=== PATIENT | female | born 1960 | race Caucasian/White ===

== ENCOUNTER → 2016-10-11 | Outpatient (CLI) | payer OTHER ==
[~2016-10-11] MED LIST: ARIP2TAB3 PO; ASCO10003 PO; ASPI81TA28 PO; ATV/1 PO; DULO60CA44 PO; ESZO1TAB16 PO; IRON PO; LRS20 PO; MULTTAB PO; NEXIUM PO; OXYC20TA32 PO; PREG100C PO; SUMA100T16 PO
== END | disposition home or self-care (01) ==
LOC: C.LABSPEC 12:01
PROVIDERS: ATTEND Obstetrics & Gynecology
DX: R10.2 Pelvic and perineal pain (principal)

== ENCOUNTER → 2017-04-16 | Outpatient (CLI) | payer OTHER ==
[2017-04-16 16:23] LABS: MANUAL MICROSCOPIC REQUIRED? YES; REVIEW REQ? NO; URINE APPEARANCE SLIGHTLY CLOUDY (CLEAR); URINE COLOR ORANGE
[2017-04-16 16:28] LABS: URINE SPECIFIC GRAVITY 1.007 (1.000-1.030)
[2017-04-16 16:35] LABS: SULFASALICYLIC ACID NEG (NEG)
[2017-04-16 16:36] LABS: URINE BACTERIA NEG (NEG); URINE RBC >30 /hpf (0-4); URINE WBC >30 /hpf (0-5)
== END | disposition home or self-care (01) ==
LOC: C.LABSPEC 15:53
PROVIDERS: ATTEND Physician Assistant
DX: R30.9 Painful micturition, unspecified (principal)

== ENCOUNTER → 2017-04-24 | Outpatient (CLI) | payer OTHER | END | disposition home or self-care (01) | LOC: C.LABSPEC 17:12 | PROVIDERS: ATTEND Podiatrist Foot & Ankle Surgery | DX: B35.1 Tinea unguium (principal) ==

== ENCOUNTER → 2017-05-27 | Outpatient (CLI) | payer OTHER ==
[2017-05-27 19:54] LABS: ALKALINE PHOSPHATASE 97 U/L (45-117); ALT/SGPT 23 U/L (12-78); AST/SGOT 23 U/L (15-37)
--- NOTE | 2017-06-03 15:42 | CODING QUERY NO DIAGNOSIS ---
TREATMENT RENDERED WITHOUT A DIAGNOSIS To promote full compliance with coding requirements relating to patient care, physician participation is requested in all cases of operating room nurse uncertainty. Please assist us with providing a diagnosis/symptom for the test(s) below: A diagnosis/symptom was not documented on your Order. A valid diagnosis/symptom is required to bill all insurances. Please remember that we are unable to code a diagnosis of rule out, probable, possible, questionable, or suspected. Tests that require a diagnosis: DOS: 05/27/17 * BILIRUBIN, TOTAL & DIRECT DIAGNOSIS: * LIVER PROFILE DIAGNOSIS: Provider Signature: Date: Thank you Aysha Kent [facility] Information Management Once completed, please kindly fax back to [phone] For questions please call [phone]
== END | disposition home or self-care (01) ==
LOC: C.LAB 18:46
PROVIDERS: ATTEND Podiatrist Foot & Ankle Surgery
DX: L60.0 Ingrowing nail (principal); B35.1 Tinea unguium; M79.675 Pain in left toe(s); M79.674 Pain in right toe(s); M79.672 Pain in left foot; M79.671 Pain in right foot

== ENCOUNTER 2019-07-18 15:07 | Inpatient (IN) ==
[2019-07-18] MEDS ORDERED: ALBUT/IPRATROP 3MG/0.5MG NEB 3 ML VIAL NEB STA (15:36)
[2019-07-18] MEDS ORDERED: SODIUM CHLORIDE 0.9% 1000ML 1,000 ML IV ONE (15:36)
--- NOTE | 2019-07-18 16:08 | Emergency Department Note ---
History of Present Illness General Chief Complaint: Shortness of Breath/Dyspnea Stated Complaint: HARD TO BREATH Source: patient Mode of arrival: ambulatory Limitations: no limitations History of Present Illness Provider Complaint: shortness of breath, cough and pain with inspiration Onset (ago): hour(s) (12) Severity: moderate Consistency/Duration: + intermittent and + progressively worsening Maximum Pain Intensity: 8 Current Pain Intensity: 8 Relieved By: + rest and + upright position Exacerbated By: + lying flat, + exertion, + coughing and + inspiration Context: + recent illness (pneumonia since May 2019); no recent travel Known history of: recurrent pneumonia Associated symptoms: + pain with inspiration, + cough, + orthopnea and + other (chills) Treatment prior to arrival: none This 59-year-old female patient presents emergency department today, ambulatory, accompanied by her . The patient reports that significant past medical history of pneumonia in 2013. Upon review of the patient's medical records, it appears that she became septic and had a lung abscess at this time. She was admitted for 12 days. The patient states since that time, her right lung has not been "normal", but she has not had any specific problems. She states on May 30, she was seen at [facility] in [place] and diagnosed with pneumonia. She states she has not followed up with her PCP, but has been back to the hospital multiple times for pneumonia since this time. She states she was on 3 antibiotics, prednisone, and inhaler. She states occasionally, she gets better and feels well, but a few weeks later she develops chills, cough, and dyspnea. The patient states the symptoms most recently began at 2 AM this morning. She states she is having pain with inspiration, followed by coughing. She denies any productive cough or hemoptysis. She denies any fever. She denies any leg swelling or recent travel. She denies a history of clots. She has taken no medications for her symptoms. She has not followed up with her PCP for a negative chest x-ray, but states the chest x-rays which have been performed in [place] have showed pneumonia in her right lung. Patient denies any abdominal pain, nausea, vomiting, numbness, tingling, headache, dizziness, chest pain, diarrhea, constipation, or other concerning symptoms. Related Data Home oxygen amount: none Home Medications Home Medications Medication Instructions Recorded Confirmed Type amitriptyline 150 mg PO HS 08/27/18 07/18/19 History aripiprazole [Abilify] 15 mg PO QAM 08/27/18 07/18/19 History aspirin [Aspir-81] 81 mg PO QAM 08/27/18 07/18/19 History baclofen 20 mg PO TID 08/27/18 07/18/19 History esomeprazole magnesium [Nexium 20 mg PO QAM 08/27/18 07/18/19 History Packet] multivitamin [Multiple Vitamins] 1 tab PO QAM 08/27/18 07/18/19 History oxycodone 10 mg PO QID PRN 08/27/18 07/18/19 History pregabalin [Lyrica] 200 mg PO AMPM 08/27/18 07/18/19 History vitamin B complex 1 tab PO QAM 08/27/18 07/18/19 History hydroxyzine pamoate [Vistaril] 100 mg PO HS 07/18/19 07/18/19 History naloxegol [Movantik] 25 mg PO QAM 07/18/19 07/18/19 History vortioxetine [Trintellix] 10 mg PO QAM 07/18/19 07/18/19 History Allergies Allergy/AdvReac Type Severity Reaction Status Date / Time cephalexin Allergy Severe NEURO Verified 07/18/19 18:46 CHANGES orange Allergy Unknown Swelling Verified 07/18/19 18:46 of the Eye Sulfa (Sulfonamide Allergy Unknown Swelling Verified 07/18/19 18:46 Antibiotics) of Lip/Tongue/Throat Past Med/Surg History Medical History Elevated white blood cell count (Acute) Hypokalemia (Acute) UTI (lower urinary tract infection) (Acute) Sepsis (Acute 09/10/14) Lung abscess (Acute 09/10/14) Fibromyalgia (Chronic) Appendicitis Sinusitis (Acute) Social History Preferred Language: Danish Communication Ability: Effective Labor Delivery Specialist Required: No Beliefs That Will Affect Care: None Current Living Situation: Spouse current occupational status: unemployed and disabled Other Information That Helps Us Care for You: No Feels Safe at Home: Yes Safety Concerns: Feels Safe At This Time Smoking Status: Former smoker Age Started Using Tobacco: 17 ; Age Quit Using Tobacco: 29 ; packs per day: 1 ; Do You Dip or Chew Tobacco: No ; Number of Years Since Quit: 25 ; Hx Alcohol Use: No Hx Substance Use: No Review of Systems A total of 10 systems reviewed and were otherwise negative Physical Exam Vital Signs: Vital Signs - 24 hr 07/18/19 15:08 07/18/19 15:30 07/18/19 15:33 Temperature 36.7 C Temperature Source Oral Sepsis Recent Feve r Within 48 Hours No Sepsis New/Unexpla ined Change in Men beata Status No Sepsis Action Take n by Nursing No Action Required Pulse Rate 100 H Pulse Rate [Right Finger] Pulse Rate from Sp O2 Sensor Pulse Rhythm [Righ t Finger] Pulse Strength [Ri ght Finger] Respiratory Rate 18 Respiratory Effort / Characteristics Non-Labored Non-Labored Respiratory Depth Normal Blood Pressure 115/76 Blood Pressure [Ri ght Arm] Blood Pressure Eryn n 89 Blood Pressure Eryn n [Right Arm] Blood Pressure Pos ition [Right Arm] Pulse Oximetry 95 92 Oxygen Delivery Me thod Room Air Room Air Room Air 07/18/19 15:36 07/18/19 16:00 07/18/19 16:02 Temperature Temperature Source Sepsis Recent Feve r Within 48 Hours Sepsis New/Unexpla ined Change in Men beata Status Sepsis Action Take n by Nursing Pulse Rate 89 85 Pulse Rate [Right Finger] 85 Pulse Rate from Sp O2 Sensor 88 85 Pulse Rhythm [Righ t Finger] Pulse Strength [Ri ght Finger] Respiratory Rate 18 23 16 Respiratory Effort / Characteristics Non-Labored Sponta neous Respiratory Depth Blood Pressure Blood Pressure [Ri ght Arm] Blood Pressure Eryn n Blood Pressure Eryn n [Right Arm] Blood Pressure Pos ition [Right Arm] Pulse Oximetry 93 92 92 Oxygen Delivery Me thod 07/18/19 16:30 07/18/19 16:32 07/18/19 16:36 Temperature Temperature Source Sepsis Recent Feve r Within 48 Hours Sepsis New/Unexpla ined Change in Men beata Status Sepsis Action Take n by Nursing Pulse Rate 89 Pulse Rate [Right Finger] Pulse Rate from Sp O2 Sensor 89 Pulse Rhythm [Righ t Finger] Pulse Strength [Ri ght Finger] Respiratory Rate 17 Respiratory Effort / Characteristics Respiratory Depth Blood Pressure Blood Pressure [Ri ght Arm] Blood Pressure Eryn n Blood Pressure Eryn n [Right Arm] Blood Pressure Pos ition [Right Arm] Pulse Oximetry 92 91 91 Oxygen Delivery Me thod Room Air Room Air 07/18/19 16:46 07/18/19 17:08 07/18/19 18:37 Temperature Temperature Source Sepsis Recent Feve r Within 48 Hours Sepsis New/Unexpla ined Change in Men beata Status Sepsis Action Take n by Nursing Pulse Rate 89 90 Pulse Rate [Right Finger] 90 87 Pulse Rate from Sp O2 Sensor 89 90 Pulse Rhythm [Righ t Finger] Regular Regular Pulse Strength [Ri ght Finger] Normal Respiratory Rate 18 14 Respiratory Effort / Characteristics Respiratory Depth Blood Pressure 101/62 Blood Pressure [Ri ght Arm] 101/62 105/75 Blood Pressure Eryn n 75 Blood Pressure Eryn n [Right Arm] 75 85 Blood Pressure Pos ition [Right Arm] Lying Lying Pulse Oximetry 92 96 93 Oxygen Delivery Me thod Room Air Room Air Physical Exam: VITALS: Vitals are noted on the nurse's note and reviewed by myself. Patient is afebrile, but heart rate is in the high 90s on examination. O2 saturation is 92%. Normotensive. GENERAL: This is a 59-year-old white female, in no acute distress, no ndiaphoretic, well-developed well-nourished. SKIN: The skin was without rashes, erythema, edema, or bruising. There is no tenting of the skin. Capillary refill less than 2 seconds. HEAD: Normocephalic atraumatic. EARS: External auditory canals clear, tympanic membranes pearly mejia without erythema or effusion bilaterally. EYES: Pupils equal round and reactive to light and accommodation. Conjunctivae without injection, sclerae without icterus. Extraocular movements intact. NOSE: Patent, turbinates without inflammation or discharge. No sinus tenderness. MOUTH: Mucous membranes moist. Tonsils are not enlarged. Pharynx without erythema or exudate. Uvula midline. Airway patent. Tongue does not deviate. NECK: Supple without nuchal rigidity. No lymphadenopathy. Cervical spine is nontender. HEART: Regular rate and rhythm without murmurs gallops or rubs. LUNGS: Clear to auscultation bilaterally without wheezes, rales or rhonchi. Deep breathing does cause cough. No dullness to percussion. No retractions or accessory muscle use. ABDOMEN: Positive bowel sounds x 4. Normal tympanic percussion. Soft, nontender, without masses or organomegaly. Benavidez sign negative. No guarding or rebound tenderness. MUSCULOSKELETAL: No muscle atrophy, erythema, or edema noted. Full range of motion without joint tenderness in all extremities. No tenderness to palpation. Normal gait. Strength 5/5 throughout. Negative Homans sign bilaterally. NEURO: Patient was alert and oriented to person place and time. Normal sensation to light and sharp touch. No focal neurological deficits. Course The patient was seen and evaluated as above. IV access obtained, labs drawn. Patient was medicated with IV fluids and a DuoNeb treatment. Imaging performed and reviewed by myself and radiologist as above. Labs reviewed by myself. Received a phone call from the RN that the patient is complaining of a migraine. The patient was given 6 mg subcutaneous Imitrex. I discussed the findings with the patient at bedside. I did recommend admission . The patient was agreeable. I discussed the case with my attending. I discussed the case with wrapper caser. I contacted the hospitalist for [facility], Dr. Murry. Advised her of the patient's history and current condition and suggested admission. She was agreeable. She did request vancomycin and Zosyn for the pneumonia. Patient was medicated with IV vancomycin and Zosyn. Please see hospitalist dictation regarding ongoing management care of this patient. Administered Medications Discontinued Medications Albuterol (Duoneb) 3 ml NEB NOW STA Stop: 07/18/19 15:37 Last Admin: 07/18/19 16:01 Dose: 3 ml Documented by: [id number] Sodium Chloride (Nss 1000ml) 1,000 mls @ 999 mls/hr IV .Q1H1M ONE Stop: 07/18/19 16:36 Last Infusion: 07/18/19 18:30 Dose: 0 mls/hr Documented by: [id number] Admin: 07/18/19 17:07 Dose: 999 mls/hr Documented by: [id number] Vancomycin HCl 2,000 mg/ (Sodium Chloride) 540 mls @ 200 mls/hr IV NOW ONE Stop: 07/18/19 21:18 Last Infusion: 07/18/19 23:21 Dose: 0 mls/hr Documented by: [id number] Infusion: 07/18/19 19:50 Dose: 200 mls/hr Documented by: [id number] Infusion: 07/18/19 19:18 Dose: 0 mls/hr Documented by: [id number] Admin: 07/18/19 18:58 Dose: 200 mls/hr Documented by: [id number] Piperacillin Sod/Tazobactam Sod (Zosyn) 4.5 gm in 120 mls @ 240 mls/hr IV NOW ONE Stop: 07/18/19 19:09 Last Infusion: 07/18/19 19:50 Dose: 0 mls/hr Documented by: [id number] Admin: 07/18/19 19:19 Dose: 240 mls/hr Documented by: [id number] Ioversol (Optiray 320 125ml) 72 ml IV ONCE PRN PRN Reason: Interaction Checking Stop: 07/22/19 17:01 Last Admin: 07/18/19 17:03 Dose: 72 ml Documented by: [id number] Sumatriptan Succinate (Imitrex) 6 mg SQ NOW STA Stop: 07/18/19 17:35 Last Admin: 07/18/19 17:45 Dose: 6 mg Documented by: [id number] Medical Decision Making Differential Diagnosis + acute exacerbation of chronic obstructive airways disease, + congestive heart failure, + community acquired pneumonia, + asthma with exacerbation, + pulmonary embolism, + COPD, + bronchitis, + pneumothorax, + pneumonia, + pleural effusion, + CHF, + ACS and + aspiration Home Medications Current Medication List: was personally reviewed by me Laboratory Data Attestation: I reviewed the patient's lab results. Leukocytosis of 15,000. Neutrophil elevation at 12,000. No anemia noted. Renal, hepatic function and electrolytes without significant abnormality. Troponin negative. Lactic acid 1.5. Evangeline screen negative. Influenza testing negative. Coags without abnormality. Urinalysis without evidence of blood or infection. Result diagrams: 07/18/19 16:20 07/18/19 16:20 Lab Results 07/18/19 07/18/19 07/18/19 Range/Units 16:20 16:20 16:20 WBC 15.40 H (4.8-10.8) K/uL RBC 4.44 (4.2-5.4) M/uL Hgb 13.5 (12.0-16.0) g/dL Hct 39.6 (37-47) % MCV 89.2 (80-100) fL MCH 30.4 (25-34) pg MCHC 34.1 (32-36) g/dL RDW Std Deviation 51.6 H (36.4-46.3) fL RDW Coeff of Abida 15.8 H (11.5-14.5) % Plt Count 248 (130-400) K/uL MPV 10.6 H (7.4-10.4) fL Immature Gran % (Auto) 0.4 % Neut % (Auto) 81.7 % Lymph % (Auto) 12.1 % Evangeline % (Auto) 5.3 % Eos % (Auto) 0.3 % Baso % (Auto) 0.2 % Immature Gran # (Auto) 0.06 H (0.00-0.02) K/uL Neut # (Auto) 12.59 H (1.4-6.5) K/uL Lymph # (Auto) 1.86 (1.2-3.4) K/uL Evangeline # (Auto) 0.82 H (0.11-0.59) K/uL Eos # (Auto) 0.04 (0-0.5) K/uL Baso # (Auto) 0.03 (0-0.2) K/uL PT Cancelled INR Cancelled APTT Cancelled PTT Ratio Cancelled Sodium 139 (136-145) mmol/L Potassium 3.9 (3.5-5.1) mmol/L Chloride 106 (98-107) mmol/L Carbon Dioxide 25 (21-32) mmol/L Anion Gap 8.0 (3-11) BUN 13 (7-18) mg/dl Creatinine 0.73 (0.6-1.2) mg/dl Est Cr Clr Drug Dosing 91.2 ml/min Est GFR ( Amer) 103.8 Est GFR (Non-Af Amer) 89.5 BUN/Creatinine Ratio 18.1 (10-20) Glucose 90 (70-99) mg/dl Lactate (0.4-2.0) mmol/L Calcium 8.7 (8.5-10.1) mg/dl Total Bilirubin 0.7 (0.2-1) mg/dl AST 49 H (15-37) U/L ALT 46 (12-78) U/L Alkaline Phosphatase 100 (45-117) U/L Troponin I < 0.015 (0-0.045) ng/ml Total Protein 7.0 (6.4-8.2) gm/dl Albumin 3.4 (3.4-5.0) gm/dl Globulin 3.6 (2.5-4.0) gm/dl Albumin/Globulin Ratio 0.9 (0.9-2) Urine Color Urine Appearance (Clear) Urine pH (4.5-7.5) Ur Specific Ludlow (1.000-1.030) Urine Protein (Negative) Urine Glucose (UA) (Negative) Urine Ketones (Negative) Urine Blood (Negative) Urine Nitrite (Negative) Urine Bilirubin (Negative) Urine Urobilinogen (Negative) Ur Leukocyte Esterase (Negative) Urine WBC (Auto) (0-5) /hpf Urine RBC (Auto) (0-4) /hpf U Hyaline Cast (Auto) (0-5) /lpf U Epithel Cells (Auto) (0-5) /lpf Urine Bacteria (Auto) (Negative) Monoscreen (Negative) Influenza Type A Ag (Neg) Influenza Type B Ag (Neg) 07/18/19 07/18/19 07/18/19 Range/Units 16:43 16:43 16:45 WBC (4.8-10.8) K/uL RBC (4.2-5.4) M/uL Hgb (12.0-16.0) g/dL Hct (37-47) % MCV (80-100) fL MCH (25-34) pg MCHC (32-36) g/dL RDW Std Deviation (36.4-46.3) fL RDW Coeff of Abida (11.5-14.5) % Plt Count (130-400) K/uL MPV (7.4-10.4) fL Immature Gran % (Auto) % Neut % (Auto) % Lymph % (Auto) % Evangeline % (Auto) % Eos % (Auto) % Baso % (Auto) % Immature Gran # (Auto) (0.00-0.02) K/uL Neut # (Auto) (1.4-6.5) K/uL Lymph # (Auto) (1.2-3.4) K/uL Evangeline # (Auto) (0.11-0.59) K/uL Eos # (Auto) (0-0.5) K/uL Baso # (Auto) (0-0.2) K/uL PT INR APTT PTT Ratio Sodium (136-145) mmol/L Potassium (3.5-5.1) mmol/L Chloride (98-107) mmol/L Carbon Dioxide (21-32) mmol/L Anion Gap (3-11) BUN (7-18) mg/dl Creatinine (0.6-1.2) mg/dl Est Cr Clr Drug Dosing ml/min Est GFR ( Amer) Est GFR (Non-Af Amer) BUN/Creatinine Ratio (10-20) Glucose (70-99) mg/dl Lactate 1.5 (0.4-2.0) mmol/L Calcium (8.5-10.1) mg/dl Total Bilirubin (0.2-1) mg/dl AST (15-37) U/L ALT (12-78) U/L Alkaline Phosphatase (45-117) U/L Troponin I (0-0.045) ng/ml Total Protein (6.4-8.2) gm/dl Albumin (3.4-5.0) gm/dl Globulin (2.5-4.0) gm/dl Albumin/Globulin Ratio (0.9-2) Urine Color Urine Appearance (Clear) Urine pH (4.5-7.5) Ur Specific Ludlow (1.000-1.030) Urine Protein (Negative) Urine Glucose (UA) (Negative) Urine Ketones (Negative) Urine Blood (Negative) Urine Nitrite (Negative) Urine Bilirubin (Negative) Urine Urobilinogen (Negative) Ur Leukocyte Esterase (Negative) Urine WBC (Auto) (0-5) /hpf Urine RBC (Auto) (0-4) /hpf U Hyaline Cast (Auto) (0-5) /lpf U Epithel Cells (Auto) (0-5) /lpf Urine Bacteria (Auto) (Negative) Monoscreen Negative (Negative) Influenza Type A Ag Neg for Influ A (Neg) Influenza Type B Ag Neg for Influ B (Neg) 07/18/19 07/18/19 Range/Units 17:15 19:15 WBC (4.8-10.8) K/uL RBC (4.2-5.4) M/uL Hgb (12.0-16.0) g/dL Hct (37-47) % MCV (80-100) fL MCH (25-34) pg MCHC (32-36) g/dL RDW Std Deviation (36.4-46.3) fL RDW Coeff of Abida (11.5-14.5) % Plt Count (130-400) K/uL MPV (7.4-10.4) fL Immature Gran % (Auto) % Neut % (Auto) % Lymph % (Auto) % Evangeline % (Auto) % Eos % (Auto) % Baso % (Auto) % Immature Gran # (Auto) (0.00-0.02) K/uL Neut # (Auto) (1.4-6.5) K/uL Lymph # (Auto) (1.2-3.4) K/uL Evangeline # (Auto) (0.11-0.59) K/uL Eos # (Auto) (0-0.5) K/uL Baso # (Auto) (0-0.2) K/uL PT 10.4 INR 1.0 APTT 30.4 PTT Ratio 1.1 Sodium (136-145) mmol/L Potassium (3.5-5.1) mmol/L Chloride (98-107) mmol/L Carbon Dioxide (21-32) mmol/L Anion Gap (3-11) BUN (7-18) mg/dl Creatinine (0.6-1.2) mg/dl Est Cr Clr Drug Dosing ml/min Est GFR ( Amer) Est GFR (Non-Af Amer) BUN/Creatinine Ratio (10-20) Glucose (70-99) mg/dl Lactate (0.4-2.0) mmol/L Calcium (8.5-10.1) mg/dl Total Bilirubin (0.2-1) mg/dl AST (15-37) U/L ALT (12-78) U/L Alkaline Phosphatase (45-117) U/L Troponin I (0-0.045) ng/ml Total Protein (6.4-8.2) gm/dl Albumin (3.4-5.0) gm/dl Globulin (2.5-4.0) gm/dl Albumin/Globulin Ratio (0.9-2) Urine Color Yellow Urine Appearance Clear (Clear) Urine pH 8.0 H (4.5-7.5) Ur Specific Ludlow 1.044 H (1.000-1.030) Urine Protein Negative (Negative) Urine Glucose (UA) Negative (Negative) Urine Ketones Negative (Negative) Urine Blood Negative (Negative) Urine Nitrite Negative (Negative) Urine Bilirubin Negative (Negative) Urine Urobilinogen Negative (Negative) Ur Leukocyte Esterase 2+ H (Negative) Urine WBC (Auto) 10-30 H (0-5) /hpf Urine RBC (Auto) 0-4 (0-4) /hpf U Hyaline Cast (Auto) 0 (0-5) /lpf U Epithel Cells (Auto) 10-20 H (0-5) /lpf Urine Bacteria (Auto) Negative (Negative) Monoscreen (Negative) Influenza Type A Ag (Neg) Influenza Type B Ag (Neg) Imaging Data Radiologist's Impression: XR chest 1V portable HISTORY: 59 years-old Female cough acute cough COMPARISON: Chest radiograph 12/23/2014 TECHNIQUE: Portable AP view of the chest FINDINGS: Cardiomediastinal and hilar silhouettes appear unchanged. No pneumothorax, large pleural effusion or overt pulmonary edema. Patchy alveolar opacities of the right lung base. Bones appear grossly intact. IMPRESSION: Alveolar opacities of the right lung base are suggestive of pneumonia. The above report was generated using voice recognition software. It may contain grammatical, syntax or spelling errors. Electronically signed by: Blanco Moore M.D. 07/18/2019 4:[address] angio chest PE protocol CT DOSE: 298.96 mGy.cm HISTORY: 59 years-old Female with dyspnea, chest pain. Shortness of breath with chest pain TECHNIQUE: Multiple CTA images of the chest were obtained after the intravenous administration of 72 ml Optiray 320. Coronal and sagittal MIPS were obtained from the axial data set and were submitted for review. All measurements were obtained according to NASCET criteria. A dose lowering technique was utilized a dhering to the principles of ALARA. COMPARISON: Chest radiograph of same day, chest CT 09/17/2014 FINDINGS: CTA: Heart is normal in size with trace pericardial effusion. Thoracic aorta is normal in course and caliber without aneurysm or dissection. Patency of the imaged great vessels. Pulmonary arterial tree is opacified to the subsegmental branches and demonstrates no focal filling defects to suggest pulmonary thromboembolic disease. CT CHEST: Unremarkable thyroid. No adenopathy by CT size criteria. Mildly prominent paratracheal, subcarinal and right hilar lymph nodes are likely reactive measuring up to 9 mm. There is no pneumothorax or pleural effusion. Mild subsegmental left basilar atelectasis. 3 mm calcified granuloma of the left upper lobe. Multifocal patchy groundglass, reticular and alveolar opacities are noted throughout the right lung. Mild intralobular septal thickening. Central airways appear patent. No focal pulmonary mass identified. Mild bronchial wall thickening of the right lung base. No acute process of the imaged upper abdomen. The breast parenchyma and soft tissues appear unremarkable. Bones appear intact. IMPRESSION: 1. No evidence of pulmonary thromboembolic disease. 2. Multisegmental mixed opacities throughout the right lung are suggestive of multifocal pneumonia. Follow-up imaging to document resolution is recommended. 3. Mildly prominent paratracheal, subcarinal and right hilar lymph nodes are likely reactive. 4. No pleural effusion. The above report was generated using voice recognition software. It may contain grammatical, syntax or spelling errors. Electronically signed by: Blanco Moore M.D. 07/18/2019 5:20 PM ECG Data Attestation: I personally reviewed and interpreted this ECG as follows: Interpretation: Normal sinus rhythm with ventricular rate of 90 bpm. Incomplete right bundle branch block noted. No acute ST elevation. No ectopy. No significant change when compared with EKG of 08/27/2018. Blood Pressure Blood Pressure Findings: Normal blood pressure MDM Narrative This 59-year-old female patient presents emergency department today due to acute onset of dyspnea. The patient does have a history of pneumonia with abscess in 2013. She was admitted here in the ED at that time. Since May, she has been ill with cough, dyspnea, and congestion. She has not followed up as an outpatient with her primary care provider and has not had any imaging to ensure resolution of the pneumonia since May. She has been treated 2-3 times in the past 2 months for pneumonia with various antibiotics, steroids, and inhaler. Work-up here in the ED was consistent with multifocal pneumonia of the right lung. Because of the patient's history of abscess and complaints of dyspnea, borderline hypoxia, and illness for the past 2 months, I did recommend admission for IV antibiotics and further work-up. The patient was agreeable. I did discuss the case with the [facility] hospitalist who agreed to evaluate the patient for admission. Please see their dictation regarding ongoing management care of this patient. The chart was completed utilizing [email or web address] Speech voice recognition software. Grammatical errors, random word insertions, pronoun errors, and incomplete sentences are an occasional consequence of this system due to software limitations, ambient noise, and hardware issues. Any formal questions or conc erns about the content, text, or information contained within the body of this dictation should be directly addressed to the provider for clarification. Impression & Plan Recurrent pneumonia, Migraines, neuralgic, Hx of pulmonary infarction Discharge Plan Visit Data *Final* Discharge Date/Time: 07/18/19 21:40 Chief Complaint: Shortness of Breath/Dyspnea Stated Complaint: HARD TO BREATH ED Provider: Preston [facility] ED Midlevel Provider: Danielle Mendoza Discharge Problem: Recurrent pneumonia, Migraines, neuralgic, Hx of pulmonary infarction Patient Disposition: Admitted As Inpatient Condition: Good Discharge Instructions Interventions: ED Discharge Assessment Last Done: 07/18/19 21:40
[2019-07-18 16:32] LABS: Basophils # (auto) 0.03 K/uL (0-0.2); Basophils % (auto) 0.2 %; Eosinophils # (auto) 0.04 K/uL (0-0.5); Eosinophils % (auto) 0.3 %; Hematocrit (blood only) 39.6 % (37-47); Hemoglobin 13.5 g/dL (12.0-16.0); Immature Granulocytes # (auto) 0.06 K/uL (0.00-0.02); Immature Granulocytes % (auto) 0.4 %; Lymphocytes # (auto) 1.86 K/uL (1.2-3.4); Lymphocytes % (auto) 12.1 %; Mean Corpuscular Hemoglobin 30.4 pg (25-34); Mean Corpuscular Hgb Conc 34.1 g/dL (32-36); Mean Corpuscular Volume 89.2 fL (80-100); Mean Platelet Volume 10.6 fL (7.4-10.4); Monocytes # (auto) 0.82 K/uL (0.11-0.59); Monocytes % (auto) 5.3 %; Neutrophils # (auto) 12.59 K/uL (1.4-6.5); Neutrophils % (auto) 81.7 %; Platelet Count 248 K/uL (130-400); RDW Coefficient of Variation 15.8 % (11.5-14.5); RDW Standard Deviation 51.6 fL (36.4-46.3); Red Blood Count 4.44 M/uL (4.2-5.4)
--- NOTE | 2019-07-18 16:32 | XRay Report ---
XR chest 1V portable HISTORY: 59 years-old Female cough acute cough COMPARISON: Chest radiograph 12/23/2014 TECHNIQUE: Portable AP view of the chest FINDINGS: Cardiomediastinal and hilar silhouettes appear unchanged. No pneumothorax, large pleural effusion or overt pulmonary edema. Patchy alveolar opacities of the right lung base. Bones appear grossly intact. IMPRESSION: Alveolar opacities of the right lung base are suggestive of pneumonia. The above report was generated using voice recognition software. It may contain grammatical, syntax o r spelling errors. Electronically signed by: Blanco Moore M.D. 07/18/2019 4:30 PM
[2019-07-18 16:50] LABS: Alanine Aminotransferase 46 U/L (12-78); Albumin Level 3.4 gm/dl (3.4-5.0); Aspartate Aminotransferase 49 U/L (15-37); BUN Creatinine Ratio 18.1 (10-20); Blood Urea Nitrogen 13 mg/dl (7-18); Calcium 8.7 mg/dl (8.5-10.1); Carbon Dioxide 25 mmol/L (21-32); Chloride 106 mmol/L (98-107); Creatinine Clr Calc Pharmacy 91.2 ml/min; Est GFR (African American) 103.8; Est GFR (Non-African American) 89.5; Glucose 90 mg/dl (70-99); Potassium 3.9 mmol/L (3.5-5.1); Sodium 139 mmol/L (136-145)
[2019-07-18 16:54] LABS: Albumin Globulin Ratio 0.9 (0.9-2); Alkaline Phosphatase 100 U/L (45-117); Bilirubin,Total 0.7 mg/dl (0.2-1); Globulin 3.6 gm/dl (2.5-4.0); Troponin I < 0.015 ng/ml (0-0.045)
[2019-07-18] MEDS ORDERED: OPTIRAY 320 125ml IV PRN (17:02)
--- NOTE | 2019-07-18 17:21 | CT Scan Report ---
CT angio chest PE protocol CT DOSE: 298.96 mGy.cm HISTORY: 59 years-old Female with dyspnea, chest pain. Shortness of breath with chest pain TECHNIQUE: Multiple CTA images of the chest were obtained after the intravenous administration of 72 ml Optiray 320. Coronal and sagittal MIPS were obtained from the axial data set and were submitted f or review. All measurements were obtained according to NASCET criteria. A dose lowering technique wa s utilized adhering to the principles of ALARA. COMPARISON: Chest radiograph of same day, chest CT 09/17/2014 FINDINGS: CTA: Heart is normal in size with trace pericardial effusion. Thoracic aorta is normal in course and calib er without aneurysm or dissection. Patency of the imaged great vessels. Pulmonary arterial tree is op acified to the subsegmental branches and demonstrates no focal filling defects to suggest pulmonary t hromboembolic disease. CT CHEST: Unremarkable thyroid. No adenopathy by CT size criteria. Mildly prominent paratracheal, subcarinal an d right hilar lymph nodes are likely reactive measuring up to 9 mm. There is no pneumothorax or pleur al effusion. Mild subsegmental left basilar atelectasis. 3 mm calcified granuloma of the left upper l obe. Multifocal patchy groundglass, reticular and alveolar opacities are noted throughout the right l hasmukh. Mild intralobular septal thickening. Central airways appear patent. No focal pulmonary mass iden tified. Mild bronchial wall thickening of the right lung base. No acute process of the imaged upper abdomen. The breast parenchyma and soft tissues appear unremarka ble. Bones appear intact. IMPRESSION: 1. No evidence of pulmonary thromboembolic disease. 2. Multisegmental mixed opacities throughout the right lung are suggestive of multifocal pneumonia. F ollow-up imaging to document resolution is recommended. 3. Mildly prominent paratracheal, subcarinal and right hilar lymph nodes are likely reactive. 4. No pleural effusion. The above report was generated using voice recognition software. It may contain grammatical, syntax o r spelling errors. Electronically signed by: Blanco Moore M.D. 07/18/2019 5:20 PM
[2019-07-18] MEDS ORDERED: SUMAtriptan succinate 6 MG/0.5 ML VIAL SQ STA (17:34)
[2019-07-18 17:37] LABS: Partial Thromboplastin Ratio 1.1; Partial Thromboplastin Time 30.4 Seconds (21.0-31.0); Prothrombin Time 10.4 Seconds (9.0-12.0)
[2019-07-18] MEDS ORDERED: VANCOMYCIN HCL 2,000 MG in SODIUM CHLORIDE 0.9% 500 ML IV ONE (18:37)
[2019-07-18] MEDS ORDERED: VANCOMYCIN CONSULT ACTIVE PRN (18:37)
[2019-07-18] MEDS ORDERED: PIPERACILL/TAZOBAC CONSULT ACTIVE PRN (18:40)
[2019-07-18] MEDS ORDERED: PIPERACILLIN/TAZOBACTAM 4.5 GM/120 ML BAG IV ONE (18:40)
[2019-07-18 19:32] LABS: Appearance Urine Clear (Clear); Bacteria Urine Automated Negative (Negative); Bilirubin Urine Negative (Negative); Blood Urine Negative (Negative); Cast Urine Automated 0 /lpf (0-5); Color Urine Yellow; Glucose Urine UA Negative (Negative); Ketones Urine Negative (Negative); Leukocyte Esterase Urine 2+ (Negative); Nitrite Urine Negative (Negative); Protein Urine Negative (Negative); RBC Urine Automated 0-4 /hpf (0-4); Specific Gravity Urine 1.044 (1.000-1.030); Urobilinogen Urine Negative (Negative)
--- NOTE | 2019-07-18 21:08 | History & Physical Report ---
Date of Service July 18, 2019 Assessment & Plan (1) Recurrent pneumonia: This is a 59-year-old female who presents to the ER after experiencing chills, shortness of breath and right-sided chest pain since 2 AM on day of admission. Her past medical history is significant for complicated pneumonia in 2013 where she says " part of my lung ", TIA, fibromyalgia, GERD, chronic pain on opioid therapy. Recent past medical history includes pneumonia in May 30 treated in the urgent care setting with 3 antibiotics (patient does not recall names), prednisone and inhaler. She says a chest x-ray was positive for right-sided pneumonia. Her symptoms resolved but then a month later recu rred with shortness of breath and chills. She went back to urgent care and received 1 antibiotic doxycycline, chest x-ray again showed right-sided pneumonia per the patient. She says she felt better and was in her usual state of health until 2 AM this morning when she woke up with shortness of breath, severe chills and a discomfort on the right anterior lateral chest. She says this feels just like the pneumonia she has had in the past. Of note patient denies exertional chest pain, headache or blurred vision, abdominal pain, diarrhea or constipation, focal weakness or syncope. She denies recent exotic travel, no history of blood transfusions, is on no immunosuppression. Denies choking while eating or any anton history of aspiration. Is relatively up-to-date on all immunizations, however states she had a adverse local reaction for several days to the Prevnar shot in 2011. Echocardiogram in 2013 (TIA ) showed EF 65 to 70%. ED course: Vitals reveal normotensive, not tachycardic, not tachypneic, not febrile or hypoxic. CBC showed showed leukocytosis 15,000, no anemia or other abnormalities. CHEM profile unremarkable, negative troponin. Urinalysis unremarkable with the exception of 2+ leukocyte esterase. EBV pending. Davidson screen and influenza a and B both negative. Chest x-ray positive for right- sided infiltrates. CT of the chest shows no pulmonary embolus, patchy grou ndglass opacities in the right middle and lower lungs. Blood culture, urine cultures pending. EKG without any abnormalities. Administered Vanco and Zosyn. As well as Imitrex for presumed migraine headache. And 1 L bolus and DuoNeb. Recurrent lobar pneumonia -As evidenced by recurrence of shortness of breath, chills and right-sided chest pain, confirmed on CT. -Recent multiple courses of antibiotics in the outpatient setting since May 30. -History of right-sided lung infarction (?), complication of pneumonia in 2013 Plan: -Admit to MedSurg -Davidson screen is negative as well as influenza -Ordered Legionella urine, mycoplasma. MRSA swab. -Patient does not appear to have symptoms of aspiration. No known history of COPD although I would recommend follow-up with pulmonology in the outpatient setting given history of lung infarction and increased risk of recurrent complicated pneumonias due to this anatomic abnormality. -Empiric treatment with vancomycin and Zosyn--although I will say patient does clinically appear well however given recent rounds of antibiotics in the outpatient setting, and his history of lung infarction, she does have high risk for drug resistance. -Awaiting blood and urine cultures although have low suspicion of bacteremia or urinary tract infection. FEN/GI: Heart healthy diet. No further fluid hydration indicated at this time. DVT ppx: Lovenox CODE STATUS: Full DISPO: MedSurg, awaiting cultures (2) Migraines, neuralgic: Continue home amitriptyline. (3) Chronic, continuous use of opioids: (4) Hx of pulmonary infarction: As above (5) GERD (gastroesophageal reflux disease): Continue home omeprazole (6) Fibromyalgia: Continue home Lyrica, oxycodone, naloxegol, baclofen. Abilify is presumably for depression, continue. History of Present Illness Chief Complaint: Shortness of breath, right-sided chest pain, dry cough, recurrent pneumonia, history of right-sided lung infarction per patient Primary Care Provider: Miguelangel Sellers MD This is a 59-year-old female who presents to the ER after experiencing chills, shortness of breath and right-sided chest pain since 2 AM on day of admission. Her past medical history is significant for complicated pneumonia in 2013 where she says " part of my lung ", TIA, fibromyalgia, GERD, chronic pain on opioid therapy. Recent past medical history includes pneumonia in May 30 treated in the urgent care setting with 3 antibiotics (patient does not recall names), prednisone and inhaler. She says a chest x-ray was positive for right- sided pneumonia. Her symptoms resolved but then a month later recurred with shortness of breath and chills. She went back to urgent care and received 1 antibiotic doxycycline, chest x-ray again showed right-sided pneumonia per the patient. She says she felt better and was in her usual state of health until 2 AM this morning when she woke up with shortness of breath, severe chills and a discomfort on the right anterior lateral chest. She says this feels just like the pneumonia she has had in the past. Of note patient denies exertional chest pain, headache or blurred vision, abdominal pain, diarrhea or constipation, focal weakness or syncope. She denies recent exotic travel, no history of blood transfusions, is on no immunosuppression. Denies choking while eating or any anton history of aspiration. Is relatively up-to-date on all immunizations, however states she had a adverse local reaction for several days to the Prevnar shot in 2011. Echocardiogram in 2013 (TIA ) showed EF 65 to 70%. Social history: Former smoker [id number] history, quit 25 years ago. Denies excessive alcohol use or vaping. Lives with her . Past medical history: TIA, migraines, fibromyalgia, GERD, chronic pain on opioid therapy Past surgical history: Laparoscopic appendectomy, urogynecologic surgical mesh ED course: Vitals reveal normotensive, not tachycardic, not tachypneic, not febrile or hypoxic. CBC showed showed leukocytosis 15,000, no anemia or other abnormalities. CHEM profile unremarkable, negative troponin. Urinalysis unremarkable with the exception of 2+ leukocyte esterase. EBV pending. Davidson screen and influenza a and B both negative. Chest x-ray positive for right- sided infiltrates. CT of the chest shows no pulmonary embolus, patchy groundglass opacities in the right middle and lower lungs. Blood culture, urine cultures pending. EKG without any abnormalities. Administered Vanco and Zosyn. As well as Imitrex for presumed migraine headache. And 1 L bolus and DuoNeb. Allergies Allergy/AdvReac Type Severity Reaction Status Date / Time cephalexin Allergy Severe NEURO Verified 07/18/19 18:46 CHANGES orange Allergy Unknown Swelling Verified 07/18/19 18:46 of the Eye Sulfa (Sulfonamide Allergy Unknown Swelling Verified 07/18/19 18:46 Antibiotics) of Lip/Tongue/Throat Home Medications Home Medications Medication Instructions Recorded Confirmed Type amitriptyline 150 mg PO HS 11/21/18 10/12/19 History aripiprazole [Abilify] 15 mg PO QAM 08/27/18 07/18/19 History aspirin [Aspir-81] 81 mg PO QAM 08/27/18 07/18/19 History baclofen 20 mg PO TID 08/27/18 07/18/19 History esomeprazole magnesium [Nexium 20 mg PO QAM 08/27/18 07/18/19 History Packet] multivitamin [Multiple Vitamins] 1 tab PO QAM 08/27/18 07/18/19 History oxycodone 10 mg PO QID PRN 08/27/18 07/18/19 History pregabalin [Lyrica] 200 mg PO AMPM 08/27/18 07/18/19 History vitamin B complex 1 tab PO QAM 08/27/18 07/18/19 History hydroxyzine pamoate [Vistaril] 100 mg PO HS 07/18/19 07/18/19 History naloxegol [Movantik] 25 mg PO QAM 07/18/19 07/18/19 History vortioxetine [Trintellix] 10 mg PO QAM 07/18/19 07/18/19 History Past Med/Surg History Medical History Elevated white blood cell count (Acute) Hypokalemia (Acute) UTI (lower urinary tract infection) (Acute) Sepsis (Acute 09/10/14) Lung abscess (Acute 09/10/14) Fibromyalgia (Chronic) Appendicitis Sinusitis (Acute) Social History Preferred Language: Bulgarian Communication Ability: Effective Resource Analyst Required: No Beliefs That Will Affect Care: None Current Living Situation: Spouse current occupational status: unemployed and disabled Other Information That Helps Us Care for You: No Feels Safe at Home: Yes Safety Concerns: Feels Safe At This Time Smoking Status: Former smoker Age Started Using Tobacco: 17 ; Age Quit Using Tobacco: 29 ; packs per day: 1 ; Do You Dip or Chew Tobacco: No ; Number of Years Since Quit: 25 ; Hx Alcohol Use: No Hx Substance Use: No Review of Systems Review of Systems: shortness of breath, severe chills and a discomfort on the right anterior lateral chest. She says this feels just like the pneumonia she has had in the past. + Dry cough. No hemoptysis. Of note patient denies exertional chest pain, headache or blurred vision, abdominal pain, diarrhea or constipation, focal weakness or syncope. No leg swelling. She denies recent exotic travel, no history of blood transfusions, is on no immunosuppression. Denies choking while eating or any anton history of aspiration. Physical Exam Physical Exam: Vitals noted and within normal limits GENERAL: Awake, alert to person, place, and time, nontoxic-appearing, in no distress. HENT: Normocephalic, atraumatic. Mucus membranes appear moist. EYES: Normal conjunctiva. Sclera non-icteric. EOMI. NECK: Supple. Full range of motion. No JVD. RESPIRATORY: Minimal right-sided crackles at the bases, otherwise clear, good movement of air. Normal work of breathing. CARDIAC: Regular rate, normal rhythm. Extremities warm and well perfused, 2+ radial pulses bilaterally; 2+ posterior tibialis pulses bilaterally. ABDOMEN: Soft, non-distended. No tenderness to palpation in all four quadrants. No rebound or guarding. No masses. Bowel sounds are normal. CHEST: Mild tenderness to palpation over the right anterior lateral ribs. Inspection reveals no rash or bruising. LOWER EXTREMITIES: Inspection of calves reveal equal size bilaterally. They are non-tender. No edema. No discoloration. NEURO: No gross focal motor deficits noted. Sensation in tact. CN II-XII grossly in tact. . SKIN: Rash not present. No jaundice noted. Significant lesions not present. PSYCH: Appropriate mood and affect. Cooperative. is present at the bedside Exam as done by Jessica Hoskins MD, [facility] Supervisor. Results & Data Vital Signs (Past 12 Hours) Vital Signs Temp Pulse Pulse Resp BP BP Pulse Ox 07/18/19 18:37 87 105/75 93 07/18/19 17:08 90 14 96 07/18/19 16:46 89 90 18 101/62 101/62 92 07/18/19 16:36 91 07/18/19 16:32 91 07/18/19 16:30 89 17 92 07/18/19 16:02 85 16 92 07/18/19 16:00 85 23 92 07/18/19 15:36 89 18 93 07/18/19 15:33 92 07/18/19 15:08 36.7 C 100 H 18 115/76 95 Laboratory Results 07/18/19 07/18/19 07/18/19 Range/Units 19:15 17:15 16:45 WBC (4.8-10.8) K/uL RBC (4.2-5.4) M/uL Hgb (12.0-16.0) g/dL Hct (37-47) % MCV (80-100) fL MCH (25-34) pg MCHC (32-36) g/dL RDW Std Deviation (36.4-46.3) fL RDW Coeff of Abida (11.5-14.5) % Plt Count (130-400) K/uL MPV (7.4-10.4) fL Immature Gran % (Auto) % Neut % (Auto) % Lymph % (Auto) % Davidson % (Auto) % Eos % (Auto) % Baso % (Auto) % Immature Gran # (Auto) (0.00-0.02) K/uL Neut # (Auto) (1.4-6.5) K/uL Lymph # (Auto) (1.2-3.4) K/uL Davidson # (Auto) (0.11-0.59) K/uL Eos # (Auto) (0-0.5) K/uL Baso # (Auto) (0-0.2) K/uL PT 10.4 INR 1.0 APTT 30.4 PTT Ratio 1.1 Sodium (136-145) mmol/L Potassium (3.5-5.1) mmol/L Chloride (98-107) mmol/L Carbon Dioxide (21-32) mmol/L Anion Gap (3-11) BUN (7-18) mg/dl Creatinine (0.6-1.2) mg/dl Est Cr Clr Drug Dosing ml/min Est GFR ( Amer) Est GFR (Non-Af Amer) BUN/Creatinine Ratio (10-20) Glucose (70-99) mg/dl Lactate (0.4-2.0) mmol/L Calcium (8.5-10.1) mg/dl Total Bilirubin (0.2-1) mg/dl AST (15-37) U/L ALT (12-78) U/L Alkaline Phosphatase (45-117) U/L Troponin I (0-0.045) ng/ml Total Protein (6.4-8.2) gm/dl Albumin (3.4-5.0) gm/dl Globulin (2.5-4.0) gm/dl Albumin/Globulin Ratio (0.9-2) Urine Color Yellow Urine Appearance Clear (Clear) Urine pH 8.0 H (4.5-7.5) Ur Specific [place] 1.044 H (1.000-1.030) Urine Protein Negative (Negative) Urine Glucose (UA) Negative (Negative) Urine Ketones Negative (Negative) Urine Blood Negative (Negative) Urine Nitrite Negative (Negative) Urine Bilirubin Negative (Negative) Urine Urobilinogen Negative (Negative) Ur Leukocyte Esterase 2+ H (Negative) Urine WBC (Auto) 10-30 H (0-5) /hpf Urine RBC (Auto) 0-4 (0-4) /hpf U Hyaline Cast (Auto) 0 (0-5) /lpf U Epithel Cells (Auto) 10-20 H (0-5) /lpf Urine Bacteria (Auto) Negative (Negative) EBV Capsid Ag IgG Ab EBV Capsid Ag IgM Ab EBV EA Restrict+Diffuse EBV Nuclear Antigen Ab Monoscreen (Negative) Influenza Type A Ag Neg for Influ A (Neg) Influenza Type B Ag Neg for Influ B (Neg) 07/18/19 07/18/19 07/18/19 Range/Units 16:43 16:43 16:43 WBC (4.8-10.8) K/uL RBC (4.2-5.4) M/uL Hgb (12.0-16.0) g/dL Hct (37-47) % MCV (80-100) fL MCH (25-34) pg MCHC (32-36) g/dL RDW Std Deviation (36.4-46.3) fL RDW Coeff of Abida (11.5-14.5) % Plt Count (130-400) K/uL MPV (7.4-10.4) fL Immature Gran % (Auto) % Neut % (Auto) % Lymph % (Auto) % [place] % (Auto) % Eos % (Auto) % Baso % (Auto) % Immature Gran # (Auto) (0.00-0.02) K/uL Neut # (Auto) (1.4-6.5) K/uL Lymph # (Auto) (1.2-3.4) K/uL Davidson # (Auto) (0.11-0.59) K/uL Eos # (Auto) (0-0.5) K/uL Baso # (Auto) (0-0.2) K/uL PT INR APTT PTT Ratio Sodium (136-145) mmol/L Potassium (3.5-5.1) mmol/L Chloride (98-107) mmol/L Carbon Dioxide (21-32) mmol/L Anion Gap (3-11) BUN (7-18) mg/dl Creatinine (0.6-1.2) mg/dl Est Cr Clr Drug Dosing ml/min Est GFR ( Amer) Est GFR (Non-Af Amer) BUN/Creatinine Ratio (10-20) Glucose (70-99) mg/dl Lactate 1.5 (0.4-2.0) mmol/L Calcium (8.5-10.1) mg/dl Total Bilirubin (0.2-1) mg/dl AST (15-37) U/L ALT (12-78) U/L Alkaline Phosphatase (45-117) U/L Troponin I (0-0.045) ng/ml Total Protein (6.4-8.2) gm/dl Albumin (3.4-5.0) gm/dl Globulin (2.5-4.0) gm/dl Albumin/Globulin Ratio (0.9-2) Urine Color Urine Appearance (Clear) Urine pH (4.5-7.5) Ur Specific [place] (1.000-1.030) Urine Protein (Negative) Urine Glucose (UA) (Negative) Urine Ketones (Negative) Urine Blood (Negative) Urine Nitrite (Negative) Urine Bilirubin (Negative) Urine Urobilinogen (Negative) Ur Leukocyte Esterase (Negative) Urine WBC (Auto) (0-5) /hpf Urine RBC (Auto) (0-4) /hpf U Hyaline Cast (Auto) (0-5) /lpf U Epithel Cells (Auto) (0-5) /lpf Urine Bacteria (Auto) (Negative) EBV Capsid Ag IgG Ab Pending EBV Capsid Ag IgM Ab Pending EBV EA Restrict+Diffuse Pending EBV Nuclear Antigen Ab Pending Monoscreen Negative (Negative) Influenza Type A Ag (Neg) Influenza Type B Ag (Neg) 07/18/19 07/18/19 07/18/19 Range/Units 16:20 16:20 16:20 WBC 15.40 H (4.8-10.8) K/uL RBC 4.44 (4.2-5.4) M/uL Hgb 13.5 (12.0-16.0) g/dL Hct 39.6 (37-47) % MCV 89.2 (80-100) fL MCH 30.4 (25-34) pg MCHC 34.1 (32-36) g/dL RDW Std Deviation 51.6 H (36.4-46.3) fL RDW Coeff of Abida 15.8 H (11.5-14.5) % Plt Count 248 (130-400) K/uL MPV 10.6 H (7.4-10.4) fL Immature Gran % (Auto) 0.4 % Neut % (Auto) 81.7 % Lymph % (Auto) 12.1 % Davidson % (Auto) 5.3 % Eos % (Auto) 0.3 % Baso % (Auto) 0.2 % Immature Gran # (Auto) 0.06 H (0.00-0.02) K/uL Neut # (Auto) 12.59 H (1.4-6.5) K/uL Lymph # (Auto) 1.86 (1.2-3.4) K/uL Davidson # (Auto) 0.82 H (0.11-0.59) K/uL Eos # (Auto) 0.04 (0-0.5) K/uL Baso # (Auto) 0.03 (0-0.2) K/uL PT Cancelled INR Cancelled APTT Cancelled PTT Ratio Cancelled Sodium 139 (136-145) mmol/L Potassium 3.9 (3.5-5.1) mmol/L Chloride 106 (98-107) mmol/L Carbon Dioxide 25 (21-32) mmol/L Anion Gap 8.0 (3-11) BUN 13 (7-18) mg/dl Creatinine 0.73 (0.6-1.2) mg/dl Est Cr Clr Drug Dosing 91.2 ml/min Est GFR ( Amer) 103.8 Est GFR (Non-Af Amer) 89.5 BUN/Creatinine Ratio 18.1 (10-20) Glucose 90 (70-99) mg/dl Lactate (0.4-2.0) mmol/L Calcium 8.7 (8.5-10.1) mg/dl Total Bilirubin 0.7 (0.2-1) mg/dl AST 49 H (15-37) U/L ALT 46 (12-78) U/L Alkaline Phosphatase 100 (45-117) U/L Troponin I < 0.015 (0-0.045) ng/ml Total Protein 7.0 (6.4-8.2) gm/dl Albumin 3.4 (3.4-5.0) gm/dl Globulin 3.6 (2.5-4.0) gm/dl Albumin/Globulin Ratio 0.9 (0.9-2) Urine Color Urine Appearance (Clear) Urine pH (4.5-7.5) Ur Specific [place] (1.000-1.030) Urine Protein (Negative) Urine Glucose (UA) (Negative) Urine Ketones (Negative) Urine Blood (Negative) Urine Nitrite (Negative) Urine Bilirubin (Negative) Urine Urobilinogen (Negative) Ur Leukocyte Esterase (Negative) Urine WBC (Auto) (0-5) /hpf Urine RBC (Auto) (0-4) /hpf U Hyaline Cast (Auto) (0-5) /lpf U Epithel Cells (Auto) (0-5) /lpf Urine Bacteria (Auto) (Negative) EBV Capsid Ag IgG Ab EBV Capsid Ag IgM Ab EBV EA Restrict+Diffuse EBV Nuclear Antigen Ab Monoscreen (Negative) Influenza Type A Ag (Neg) Influenza Type B Ag (Neg) Supervising Physician Co-Signing Physician Notes Patient was seen and examined by me personally. I reviewed the chart, the orders and discussed the case in detail with Dr. Jessica Hoskins MD. I read this H&P and agree with its contents to entirety. PG Care Time/CCT Total # of Minutes Spent Total Time Spent with Patient: Total time spent is greater than 50% in coordination of care (as documented) at patient's floor/unit and/or counseling patient: Resident Activity Tracking Resident Involvement: Resident Care Provided Care Provided: Adult [facility]
[2019-07-18] MEDS ORDERED: ALUMINUM/MAGNESIUM SUSP 30 ML UDC PO PRN (21:39)
[2019-07-18] MEDS ORDERED: ONDANSETRON INJ 2 MG/ML 2 ML VIAL IV PRN (21:39)
[2019-07-18] MEDS ORDERED: POLYETHYLENE (MIRALAX) 17 GM PACK PO PRN (21:39)
[2019-07-18] MEDS ORDERED: ACETAMINOPHEN 325 MG TAB PO PRN (21:39)
[2019-07-18] MEDS ORDERED: MAGNESIUM HYDROXIDE SUSP 30 ML UDC PO PRN (21:39)
[2019-07-19] MEDS ORDERED: INFLUENZA ADMINISTRATION CHARGE ONE (00:15)
[2019-07-19] MEDS ORDERED: INFLUENZA VACCINE HIGH DOSE 65+ 0.5 ML SYR IM ONE (00:15)
[2019-07-19] MEDS ORDERED: INFLUENZA VIRUS QUAD VACCINE 0.5 ML SYR IM ONE (00:15)
[2019-07-19] MEDS: PREGABALIN 100 MG CAP PO SCH ×3 (00:31→20:42)
[2019-07-19] MEDS: OXYCODONE HCL IR 5 MG TAB (IMMEDIATE RELEASE) PO PRN ×3 (00:35→17:28)
[2019-07-19] MEDS: BACLOFEN 20 MG TAB PO SCH ×4 (00:42→20:26)
[2019-07-19] MEDS: AMITRIPTYLINE HCL 50 MG TAB PO SCH ×2 (00:43→20:26)
[2019-07-19] MEDS: PIPERACILLIN/TAZOBACTAM 3.375 GM in DEXTROSE 5% 100 ML IV SCH ×3 (02:24→17:52)
[2019-07-19] MEDS: VANCOMYCIN HCL 1,250 MG in SODIUM CHLORIDE 0.9% 250 ML IV SCH ×2 (06:09→17:27)
[2019-07-19 06:51] LABS: Basophils # (auto) 0.02 K/uL (0-0.2); Basophils % (auto) 0.2 %; Eosinophils # (auto) 0.25 K/uL (0-0.5); Eosinophils % (auto) 2.4 %; Hematocrit (blood only) 37.1 % (37-47); Hemoglobin 11.9 g/dL (12.0-16.0); Immature Granulocytes # (auto) 0.02 K/uL (0.00-0.02); Immature Granulocytes % (auto) 0.2 %; Lymphocytes # (auto) 2.07 K/uL (1.2-3.4); Lymphocytes % (auto) 20.1 %; Mean Corpuscular Hemoglobin 29.3 pg (25-34); Mean Corpuscular Volume 91.4 fL (80-100); Mean Platelet Volume 10.6 fL (7.4-10.4); Monocytes # (auto) 0.47 K/uL (0.11-0.59); Monocytes % (auto) 4.6 %; Neutrophils # (auto) 7.49 K/uL (1.4-6.5); Neutrophils % (auto) 72.5 %; Platelet Count 221 K/uL (130-400); RDW Coefficient of Variation 16.5 % (11.5-14.5); Red Blood Count 4.06 M/uL (4.2-5.4); White Blood Count 10.32 K/uL (4.8-10.8)
[2019-07-19 06:55] LABS: Mean Corpuscular Hgb Conc 32.1 g/dL (32-36)
[2019-07-19] MEDS: ARIPiprazole 15 MG TAB PO SCH (08:19)
[2019-07-19] MEDS: MULTIVITAMIN TAB PO SCH (08:19)
[2019-07-19] MEDS: ASPIRIN 81 MG ECTAB PO SCH (08:19)
[2019-07-19] MEDS: VITAMIN B COMPLEX TAB PO SCH (08:19)
[2019-07-19] MEDS: PANTOprazole 40 MG TAB PO SCH (08:19)
[2019-07-19] MEDS: ENOXAPARIN INJ 40 MG/0.4 ML SYR SQ SCH (08:20)
[2019-07-19] MEDS ORDERED: SUMAtriptan succinate 6 MG/0.5 ML VIAL SQ STA (09:02)
[2019-07-19 09:21] LABS: BUN Creatinine Ratio 12.4 (10-20); Calcium 8.5 mg/dl (8.5-10.1); Creatinine Clr Calc Pharmacy 88.4 ml/min; Est GFR (African American) 98.8; Est GFR (Non-African American) 85.3; Potassium 3.5 mmol/L (3.5-5.1)
[2019-07-19] MEDS: ALBUT/IPRATROP 3MG/0.5MG NEB 3 ML VIAL NEB SCH ×3 (12:54→18:59)
--- NOTE | 2019-07-19 13:56 | Hospitalist Progress Note ---
Date of Service July 19, 2019 Assessment & Plan (1) Recurrent pneumonia: - CTA showed multifocal opacities throughout right lung, c/w multifocal PNA; also has reactive lymphadenopathy. - Monospot and Influenza negative; Legionella, EBV and Mycoplasma all pending. - Has been treated as outpatient for recurrent PNA. - Started Zosyn and Vancomycin for broad spectrum coverage as inpt due to recent outpatient abx treatment, likelihood of resistance. - Duoneb QID scheduled. - Reports trouble swallowing -- will order speech consult, concern for silent aspiration leading to recurrent PNA. (2) Migraines, neuralgic: - H/o migraines, evaluated by neurologist in 2013. Previously on Topamax for prevention of migraines. - Has required Imitrex x 2 during this admission. - Low threshold for head imaging if headache persists. - Continue Amitriptyline as prescribed. (3) Chronic, continuous use of opioids: - Continue Oxycodone 10 mg QID prn pain. - Bowel regimen ordered. (4) Hx of pulmonary infarction: - Pt. reports she developed pulm infarction in 2013 due to pneumonia. (5) GERD (gastroesophageal reflux disease): - PPI qAM. (6) Fibromyalgia: - Continue home Baclofen 20 mg TID, Lyrica 200 mg BID, Movantik 25 mg qAM with Oxycodone 10 mg QID prn. (7) Depression: - Continue Vistaril 100 mg qhs for anxiety. - Presumably on Abilify for depression/psych disorder - continue as prescribed. (8) DVT prophylaxis: - Lovenox daily. Dispo: Med/surg for treatment of PNA. Supervising Physician Co-Signing Physician Notes Chart reviewed, case discussed with Madiha Fuller PAC. Agree with decision making and plan. Care as above. Subjective Pt. has a non-productive cough and right sided pleuritic chest pain. Chest pain increased with coughing episodes. She has a migraine this morning -- has Sumatriptan prn at home. Pt. previously had frequent migraines, was evaluated by neurologist in 2013. Migraines were improving but have increased in overall frequency over the last year. She reports having 2 migraines per month. Denies vision changes, nausea/vomiting, sternal chest pain, SOB. Review of Systems Review of Systems: All systems reviewed & are unremarkable except as noted in HPI & below Constitutional: no fever, no chills, no fatigue and no weakness Respiratory: + cough and + pain on inspiration; no change in sputum, no dyspnea, no dyspnea on exertion, no hemoptysis, no sputum production and no wheezing Cardiovascular: no chest pain, no palpitations and no edema Gastrointestinal: no abdominal pain, no nausea, no vomiting and no constipation Genitourinary: no difficulty urinating Musculoskeletal: no back pain and no joint pain Integumentary: no non-healing lesions Physical Exam Physical Exam: General: Resting comfortably HEENT: NC/AT; PERRLA with EOMI; [place] conjunctiva, MMM. No erythema of posterior pharynx Neck: Supple and nontender Cardiac: RRR Lungs: on room air; rhonchi and wheezing in right lung, otherwise clear throughout. Abdomen: Bowel normoactive X 4; Nontender to palpation Extremities: Warm. No edema present Neuro: No focal weakness Skin: No rash Results & Data Vital Signs (Past 12 Hours) Vital Signs Temp Pulse Resp BP Pulse Ox 07/19/19 08:00 36.6 C 73 18 96/62 L 99 Laboratory Results 07/19/19 07/19/19 07/19/19 Range/Units 08:53 06:38 06:38 WBC 10.32 (4.8-10.8) K/uL RBC 4.06 L (4.2-5.4) M/uL Hgb 11.9 L (12.0-16.0) g/dL Hct 37.1 (37-47) % MCV 91.4 (80-100) fL MCH 29.3 (25-34) pg MCHC 32.1 (32-36) g/dL RDW Std Deviation 55.0 H (36.4-46.3) fL RDW Coeff of Abida 16.5 H (11.5-14.5) % Plt Count 221 (130-400) K/uL MPV 10.6 H (7.4-10.4) fL Immature Gran % (Auto) 0.2 % Neut % (Auto) 72.5 % Lymph % (Auto) 20.1 % Lucas % (Auto) 4.6 % Eos % (Auto) 2.4 % Baso % (Auto) 0.2 % Immature Gran # (Auto) 0.02 (0.00-0.02) K/uL Neut # (Auto) 7.49 H (1.4-6.5) K/uL Lymph # (Auto) 2.07 (1.2-3.4) K/uL Lucas # (Auto) 0.47 (0.11-0.59) K/uL Eos # (Auto) 0.25 (0-0.5) K/uL Baso # (Auto) 0.02 (0-0.2) K/uL Absolute Nucleated RBC Nucleated RBC % (auto) Neutrophils % (Manual) Band Neutrophils % Lymphocytes % (Manual) Prolymphocyte % Reactive Lymphs % (Man) Monocytes % (Manual) Eosinophils % (Manual) Basophils % (Manual) Metamyelocytes % (Man) Myelocytes % (Man) Promyelocytes % (Man) Blast Cells % (Manual) Plasma Cell % (Manual) Other Cells % Nucleated RBC % Neutrophils # (Manual) Band Neutrophils # Total Absolute Neuts Lymphocytes # (Manual) Prolymphocyte # Reactive Lymphs # Total Abs Lymphocytes Monocytes # (Manual) Eosinophils # (Manual) Basophils # (Manual) Metamyelocytes # (Man) Myelocytes # (Manual) Promyelocytes # (Man) Blast Cells # (Man) Plasma Cell # (Manual) Other Cells # Nucleated RBCs # (Man) Hypersegmented Neuts Hyposegmented Neuts Hypogranular Neuts Large Granular Lymphs # Lrg Granular Lymphs Hairy Cells Smudge Cells Toxic Granulation Toxic Vacuolation Dohle Bodies Desmond Rods Platelet Estimate Hypogranular Platelets Clumped Platelets Giant Platelets Platelet Satelliting RBC Morphology Polychromasia Hypochromasia Poikilocytosis Basophilic Stippling Anisocytosis Microcytosis Macrocytosis Spherocytes Pappenheimer Bodies Sickle Cells Target Cells Tear Drop Cells Ovalocytes Stomatocytes [place] Bodies Echinocytes Acanthocytes (Spur) Rouleaux RBC Agglutinates Schistocytes RBC Morph Comment Sezary Cell PT INR APTT PTT Ratio Sodium 141 (136-145) mmol/L Potassium 3.5 (3.5-5.1) mmol/L Chloride 110 H (98-107) mmol/L Carbon Dioxide 27 (21-32) mmol/L Anion Gap 4.0 (3-11) BUN 9 (7-18) mg/dl Creatinine 0.76 (0.6-1.2) mg/dl Est Cr Clr Drug Dosing 88.4 ml/min Est GFR ( Amer) 98.8 Est GFR (Non-Af Amer) 85.3 BUN/Creatinine Ratio 12.4 (10-20) Glucose 136 H (70-99) mg/dl Lactate (0.4-2.0) mmol/L Calcium 8.5 (8.5-10.1) mg/dl Total Bilirubin (0.2-1) mg/dl AST (15-37) U/L ALT (12-78) U/L Alkaline Phosphatase (45-117) U/L Troponin I (0-0.045) ng/ml Total Protein (6.4-8.2) gm/dl Albumin (3.4-5.0) gm/dl Globulin (2.5-4.0) gm/dl Albumin/Globulin Ratio (0.9-2) Procalcitonin (0-0.5) ng/ml Urine Color Urine Appearance (Clear) Urine pH (4.5-7.5) Ur Specific Brewer (1.000-1.030) Urine Protein (Negative) Urine Glucose (UA) (Negative) Urine Ketones (Negative) Urine Blood (Negative) Urine Nitrite (Negative) Urine Bilirubin (Negative) Urine Urobilinogen (Negative) Ur Leukocyte Esterase (Negative) Urine WBC (Auto) (0-5) /hpf Urine RBC (Auto) (0-4) /hpf U Hyaline Cast (Auto) (0-5) /lpf U Epithel Cells (Auto) (0-5) /lpf Urine Bacteria (Auto) (Negative) Nasal Screen MRSA (PCR) (Negative) EBV Capsid Ag IgG Ab EBV Capsid Ag IgM Ab EBV EA Restrict+Diffuse EBV Nuclear Antigen Ab Hepatitis C Ab Screen Neg Monoscreen (Negative) HIV 1&2 Ab/P24 Ag 4thGn (Neg) Influenza Type A Ag (Neg) Influenza Type B Ag (Neg) Urine Legionella Ag Mycoplasma pneumon IgG Mycoplasma pneumon IgM 07/19/19 07/19/19 07/19/19 Range/Units 05:40 05:40 00:50 WBC Cancelled (4.8-10.8) K/uL RBC Cancelled (4.2-5.4) M/uL Hgb Cancelled (12.0-16.0) g/dL Hct Cancelled (37-47) % MCV Cancelled (80-100) fL MCH Cancelled (25-34) pg MCHC Cancelled (32-36) g/dL RDW Std Deviation Cancelled (36.4-46.3) fL RDW Coeff of Abida Cancelled (11.5-14.5) % Plt Count Cancelled (130-400) K/uL MPV Cancelled (7.4-10.4) fL Immature Gran % (Auto) Cancelled % Neut % (Auto) Cancelled % Lymph % (Auto) Cancelled % Lucas % (Auto) Cancelled % Eos % (Auto) Cancelled % Baso % (Auto) Cancelled % Immature Gran # (Auto) Cancelled (0.00-0.02) K/uL Neut # (Auto) Cancelled (1.4-6.5) K/uL Lymph # (Auto) Cancelled (1.2-3.4) K/uL Lucas # (Auto) Cancelled (0.11-0.59) K/uL Eos # (Auto) Cancelled (0-0.5) K/uL Baso # (Auto) Cancelled (0-0.2) K/uL Absolute Nucleated RBC Cancelled Nucleated RBC % (auto) Cancelled Neutrophils % (Manual) Cancelled Band Neutrophils % Cancelled Lymphocytes % (Manual) Cancelled Prolymphocyte % Cancelled Reactive Lymphs % (Man) Cancelled Monocytes % (Manual) Cancelled Eosinophils % (Manual) Cancelled Basophils % (Manual) Cancelled Metamyelocytes % (Man) Cancelled Myelocytes % (Man) Cancelled Promyelocytes % (Man) Cancelled Blast Cells % (Manual) Cancelled Plasma Cell % (Manual) Cancelled Other Cells % Cancelled Nucleated RBC % Cancelled Neutrophils # (Manual) Cancelled Band Neutrophils # Cancelled Total Absolute Neuts Cancelled Lymphocytes # (Manual) Cancelled Prolymphocyte # Cancelled Reactive Lymphs # Cancelled Total Abs Lymphocytes Cancelled Monocytes # (Manual) Cancelled Eosinophils # (Manual) Cancelled Basophils # (Manual) Cancelled Metamyelocytes # (Man) Cancelled Myelocytes # (Manual) Cancelled Promyelocytes # (Man) Cancelled Blast Cells # (Man) Cancelled Plasma Cell # (Manual) Cancelled Other Cells # Cancelled Nucleated RBCs # (Man) Cancelled Hypersegmented Neuts Cancelled Hyposegmented Neuts Cancelled Hypogranular Neuts Cancelled Large Granular Lymphs Cancelled # Lrg Granular Lymphs Cancelled Hairy Cells Cancelled Smudge Cells Cancelled Toxic Granulation Cancelled Toxic Vacuolation Cancelled Dohle Bodies Cancelled Desmond Rods Cancelled Platelet Estimate Cancelled Hypogranular Platelets Cancelled Clumped Platelets Cancelled Giant Platelets Cancelled Platelet Satelliting Cancelled RBC Morphology Cancelled Polychromasia Cancelled Hypochromasia Cancelled Poikilocytosis Cancelled Basophilic Stippling Cancelled Anisocytosis Cancelled Microcytosis Cancelled Macrocytosis Cancelled Spherocytes Cancelled Pappenheimer Bodies Cancelled Sickle Cells Cancelled Target Cells Cancelled Tear Drop Cells Cancelled Ovalocytes Cancelled Stomatocytes Cancelled [place] Bodies Cancelled Echinocytes Cancelled Acanthocytes (Spur) Cancelled Rouleaux Cancelled RBC Agglutinates Cancelled Schistocytes Cancelled RBC Morph Comment Cancelled Sezary Cell Cancelled PT INR APTT PTT Ratio Sodium (136-145) mmol/L Potassium (3.5-5.1) mmol/L Chloride (98-107) mmol/L Carbon Dioxide (21-32) mmol/L Anion Gap (3-11) BUN (7-18) mg/dl Creatinine (0.6-1.2) mg/dl Est Cr Clr Drug Dosing ml/min Est GFR ( Amer) Est GFR (Non-Af Amer) BUN/Creatinine Ratio (10-20) Glucose (70-99) mg/dl Lactate (0.4-2.0) mmol/L Calcium (8.5-10.1) mg/dl Total Bilirubin (0.2-1) mg/dl AST (15-37) U/L ALT (12-78) U/L Alkaline Phosphatase (45-117) U/L Troponin I (0-0.045) ng/ml Total Protein (6.4-8.2) gm/dl Albumin (3.4-5.0) gm/dl Globulin (2.5-4.0) gm/dl Albumin/Globulin Ratio (0.9-2) Procalcitonin (0-0.5) ng/ml Urine Color Urine Appearance (Clear) Urine pH (4.5-7.5) Ur Specific Brewer (1.000-1.030) Urine Protein (Negative) Urine Glucose (UA) (Negative) Urine Ketones (Negative) Urine Blood (Negative) Urine Nitrite (Negative) Urine Bilirubin (Negative) Urine Urobilinogen (Negative) Ur Leukocyte Esterase (Negative) Urine WBC (Auto) (0-5) /hpf Urine RBC (Auto) (0-4) /hpf U Hyaline Cast (Auto) (0-5) /lpf U Epithel Cells (Auto) (0-5) /lpf Urine Bacteria (Auto) (Negative) Nasal Screen MRSA (PCR) (Negative) EBV Capsid Ag IgG Ab EBV Capsid Ag IgM Ab EBV EA Restrict+Diffuse EBV Nuclear Antigen Ab Hepatitis C Ab Screen Cancelled Monoscreen (Negative) HIV 1&2 Ab/P24 Ag 4thGn (Neg) Influenza Type A Ag (Neg) Influenza Type B Ag (Neg) Urine Legionella Ag Pending Mycoplasma pneumon IgG Mycoplasma pneumon IgM 07/18/19 07/18/19 07/18/19 Range/Units 22:35 22:07 22:07 WBC (4.8-10.8) K/uL RBC (4.2-5.4) M/uL Hgb (12.0-16.0) g/dL Hct (37-47) % MCV (80-100) fL MCH (25-34) pg MCHC (32-36) g/dL RDW Std Deviation (36.4-46.3) fL RDW Coeff of Abida (11.5-14.5) % Plt Count (130-400) K/uL MPV (7.4-10.4) fL Immature Gran % (Auto) % Neut % (Auto) % Lymph % (Auto) % Lucas % (Auto) % Eos % (Auto) % Baso % (Auto) % Immature Gran # (Auto) (0.00-0.02) K/uL Neut # (Auto) (1.4-6.5) K/uL Lymph # (Auto) (1.2-3.4) K/uL Lucas # (Auto) (0.11-0.59) K/uL Eos # (Auto) (0-0.5) K/uL Baso # (Auto) (0-0.2) K/uL Absolute Nucleated RBC Nucleated RBC % (auto) Neutrophils % (Manual) Band Neutrophils % Lymphocytes % (Manual) Prolymphocyte % Reactive Lymphs % (Man) Monocytes % (Manual) Eosinophils % (Manual) Basophils % (Manual) Metamyelocytes % (Man) Myelocytes % (Man) Promyelocytes % (Man) Blast Cells % (Manual) Plasma Cell % (Manual) Other Cells % Nucleated RBC % Neutrophils # (Manual) Band Neutrophils # Total Absolute Neuts Lymphocytes # (Manual) Prolymphocyte # Reactive Lymphs # Total Abs Lymphocytes Monocytes # (Manual) Eosinophils # (Manual) Basophils # (Manual) Metamyelocytes # (Man) Myelocytes # (Manual) Promyelocytes # (Man) Blast Cells # (Man) Plasma Cell # (Manual) Other Cells # Nucleated RBCs # (Man) Hypersegmented Neuts Hyposegmented Neuts Hypogranular Neuts Large Granular Lymphs # Lrg Granular Lymphs Hairy Cells Smudge Cells Toxic Granulation Toxic Vacuolation Dohle Bodies Desmond Rods Platelet Estimate Hypogranular Platelets Clumped Platelets Giant Platelets Platelet Satelliting RBC Morphology Polychromasia Hypochromasia Poikilocytosis Basophilic Stippling Anisocytosis Microcytosis Macrocytosis Spherocytes Pappenheimer Bodies Sickle Cells Target Cells Tear Drop Cells Ovalocytes Stomatocytes [place] Bodies Echinocytes Acanthocytes (Spur) Rouleaux RBC Agglutinates Schistocytes RBC Morph Comment Sezary Cell PT INR APTT PTT Ratio Sodium (136-145) mmol/L Potassium (3.5-5.1) mmol/L Chloride (98-107) mmol/L Carbon Dioxide (21-32) mmol/L Anion Gap (3-11) BUN (7-18) mg/dl Creatinine (0.6-1.2) mg/dl Est Cr Clr Drug Dosing ml/min Est GFR ( Amer) Est GFR (Non-Af Amer) BUN/Creatinine Ratio (10-20) Glucose (70-99) mg/dl Lactate (0.4-2.0) mmol/L Calcium (8.5-10.1) mg/dl Total Bilirubin (0.2-1) mg/dl AST (15-37) U/L ALT (12-78) U/L Alkaline Phosphatase (45-117) U/L Troponin I (0-0.045) ng/ml Total Protein (6.4-8.2) gm/dl Albumin (3.4-5.0) gm/dl Globulin (2.5-4.0) gm/dl Albumin/Globulin Ratio (0.9-2) Procalcitonin 3.00 H (0-0.5) ng/ml Urine Color Urine Appearance (Clear) Urine pH (4.5-7.5) Ur Specific Brewer (1.000-1.030) Urine Protein (Negative) Urine Glucose (UA) (Negative) Urine Ketones (Negative) Urine Blood (Negative) Urine Nitrite (Negative) Urine Bilirubin (Negative) Urine Urobilinogen (Negative) Ur Leukocyte Esterase (Negative) Urine WBC (Auto) (0-5) /hpf Urine RBC (Auto) (0-4) /hpf U Hyaline Cast (Auto) (0-5) /lpf U Epithel Cells (Auto) (0-5) /lpf Urine Bacteria (Auto) (Negative) Nasal Screen MRSA (PCR) Negative (Negative) EBV Capsid Ag IgG Ab EBV Capsid Ag IgM Ab EBV EA Restrict+Diffuse EBV Nuclear Antigen Ab Hepatitis C Ab Screen Monoscreen (Negative) HIV 1&2 Ab/P24 Ag 4thGn Neg (Neg) Influenza Type A Ag (Neg) Influenza Type B Ag (Neg) Urine Legionella Ag Mycoplasma pneumon IgG Mycoplasma pneumon IgM 07/18/19 07/18/19 07/18/19 Range/Units 19:15 17:15 16:45 WBC (4.8-10.8) K/uL RBC (4.2-5.4) M/uL Hgb (12.0-16.0) g/dL Hct (37-47) % MCV (80-100) fL MCH (25-34) pg MCHC (32-36) g/dL RDW Std Deviation (36.4-46.3) fL RDW Coeff of Abida (11.5-14.5) % Plt Count (130-400) K/uL MPV (7.4-10.4) fL Immature Gran % (Auto) % Neut % (Auto) % Lymph % (Auto) % Lucas % (Auto) % Eos % (Auto) % Baso % (Auto) % Immature Gran # (Auto) (0.00-0.02) K/uL Neut # (Auto) (1.4-6.5) K/uL Lymph # (Auto) (1.2-3.4) K/uL Lucas # (Auto) (0.11-0.59) K/uL Eos # (Auto) (0-0.5) K/uL Baso # (Auto) (0-0.2) K/uL Absolute Nucleated RBC Nucleated RBC % (auto) Neutrophils % (Manual) Band Neutrophils % Lymphocytes % (Manual) Prolymphocyte % Reactive Lymphs % (Man) Monocytes % (Manual) Eosinophils % (Manual) Basophils % (Manual) Metamyelocytes % (Man) Myelocytes % (Man) Promyelocytes % (Man) Blast Cells % (Manual) Plasma Cell % (Manual) Other Cells % Nucleated RBC % Neutrophils # (Manual) Band Neutrophils # Total Absolute Neuts Lymphocytes # (Manual) Prolymphocyte # Reactive Lymphs # Total Abs Lymphocytes Monocytes # (Manual) Eosinophils # (Manual) Basophils # (Manual) Metamyelocytes # (Man) Myelocytes # (Manual) Promyelocytes # (Man) Blast Cells # (Man) Plasma Cell # (Manual) Other Cells # Nucleated RBCs # (Man) Hypersegmented Neuts Hyposegmented Neuts Hypogranular Neuts Large Granular Lymphs # Lrg Granular Lymphs Hairy Cells Smudge Cells Toxic Granulation Toxic Vacuolation Dohle Bodies Desmond Rods Platelet Estimate Hypogranular Platelets Clumped Platelets Giant Platelets Platelet Satelliting RBC Morphology Polychromasia Hypochromasia Poikilocytosis Basophilic Stippling Anisocytosis Microcytosis Macrocytosis Spherocytes Pappenheimer Bodies Sickle Cells Target Cells Tear Drop Cells Ovalocytes Stomatocytes [place] Bodies Echinocytes Acanthocytes (Spur) Rouleaux RBC Agglutinates Schistocytes RBC Morph Comment Sezary Cell PT 10.4 INR 1.0 APTT 30.4 PTT Ratio 1.1 Sodium (136-145) mmol/L Potassium (3.5-5.1) mmol/L Chloride (98-107) mmol/L Carbon Dioxide (21-32) mmol/L Anion Gap (3-11) BUN (7-18) mg/dl Creatinine (0.6-1.2) mg/dl Est Cr Clr Drug Dosing ml/min Est GFR ( Amer) Est GFR (Non-Af Amer) BUN/Creatinine Ratio (10-20) Glucose (70-99) mg/dl Lactate (0.4-2.0) mmol/L Calcium (8.5-10.1) mg/dl Total Bilirubin (0.2-1) mg/dl AST (15-37) U/L ALT (12-78) U/L Alkaline Phosphatase (45-117) U/L Troponin I (0-0.045) ng/ml Total Protein (6.4-8.2) gm/dl Albumin (3.4-5.0) gm/dl Globulin (2.5-4.0) gm/dl Albumin/Globulin Ratio (0.9-2) Procalcitonin (0-0.5) ng/ml Urine Color Yellow Urine Appearance Clear (Clear) Urine pH 8.0 H (4.5-7.5) Ur Specific Brewer 1.044 H (1.000-1.030) Urine Protein Negative (Negative) Urine Glucose (UA) Negative (Negative) Urine Ketones Negative (Negative) Urine Blood Negative (Negative) Urine Nitrite Negative (Negative) Urine Bilirubin Negative (Negative) Urine Urobilinogen Negative (Negative) Ur Leukocyte Esterase 2+ H (Negative) Urine WBC (Auto) 10-30 H (0-5) /hpf Urine RBC (Auto) 0-4 (0-4) /hpf U Hyaline Cast (Auto) 0 (0-5) /lpf U Epithel Cells (Auto) 10-20 H (0-5) /lpf Urine Bacteria (Auto) Negative (Negative) Nasal Screen MRSA (PCR) (Negative) EBV Capsid Ag IgG Ab EBV Capsid Ag IgM Ab EBV EA Restrict+Diffuse EBV Nuclear Antigen Ab Hepatitis C Ab Screen Monoscreen (Negative) HIV 1&2 Ab/P24 Ag 4thGn (Neg) Influenza Type A Ag Neg for Influ A (Neg) Influenza Type B Ag Neg for Influ B (Neg) Urine Legionella Ag Mycoplasma pneumon IgG Mycoplasma pneumon IgM 07/18/19 07/18/19 07/18/19 Range/Units 16:43 16:43 16:43 WBC (4.8-10.8) K/uL RBC (4.2-5.4) M/uL Hgb (12.0-16.0) g/dL Hct (37-47) % MCV (80-100) fL MCH (25-34) pg MCHC (32-36) g/dL RDW Std Deviation (36.4-46.3) fL RDW Coeff of Abida (11.5-14.5) % Plt Count (130-400) K/uL MPV (7.4-10.4) fL Immature Gran % (Auto) % Neut % (Auto) % Lymph % (Auto) % Lucas % (Auto) % Eos % (Auto) % Baso % (Auto) % Immature Gran # (Auto) (0.00-0.02) K/uL Neut # (Auto) (1.4-6.5) K/uL Lymph # (Auto) (1.2-3.4) K/uL Lucas # (Auto) (0.11-0.59) K/uL Eos # (Auto) (0-0.5) K/uL Baso # (Auto) (0-0.2) K/uL Absolute Nucleated RBC Nucleated RBC % (auto) Neutrophils % (Manual) Band Neutrophils % Lymphocytes % (Manual) Prolymphocyte % Reactive Lymphs % (Man) Monocytes % (Manual) Eosinophils % (Manual) Basophils % (Manual) Metamyelocytes % (Man) Myelocytes % (Man) Promyelocytes % (Man) Blast Cells % (Manual) Plasma Cell % (Manual) Other Cells % Nucleated RBC % Neutrophils # (Manual) Band Neutrophils # Total Absolute Neuts Lymphocytes # (Manual) Prolymphocyte # Reactive Lymphs # Total Abs Lymphocytes Monocytes # (Manual) Eosinophils # (Manual) Basophils # (Manual) Metamyelocytes # (Man) Myelocytes # (Manual) Promyelocytes # (Man) Blast Cells # (Man) Plasma Cell # (Manual) Other Cells # Nucleated RBCs # (Man) Hypersegmented Neuts Hyposegmented Neuts Hypogranular Neuts Large Granular Lymphs # Lrg Granular Lymphs Hairy Cells Smudge Cells Toxic Granulation Toxic Vacuolation Dohle Bodies Desmond Rods Platelet Estimate Hypogranular Platelets Clumped Platelets Giant Platelets Platelet Satelliting RBC Morphology Polychromasia Hypochromasia Poikilocytosis Basophilic Stippling Anisocytosis Microcytosis Macrocytosis Spherocytes Pappenheimer Bodies Sickle Cells Target Cells Tear Drop Cells Ovalocytes Stomatocytes [place] Bodies Echinocytes Acanthocytes (Spur) Rouleaux RBC Agglutinates Schistocytes RBC Morph Comment Sezary Cell PT INR APTT PTT Ratio Sodium (136-145) mmol/L Potassium (3.5-5.1) mmol/L Chloride (98-107) mmol/L Carbon Dioxide (21-32) mmol/L Anion Gap (3-11) BUN (7-18) mg/dl Creatinine (0.6-1.2) mg/dl Est Cr Clr Drug Dosing ml/min Est GFR ( Amer) Est GFR (Non-Af Amer) BUN/Creatinine Ratio (10-20) Glucose (70-99) mg/dl Lactate 1.5 (0.4-2.0) mmol/L Calcium (8.5-10.1) mg/dl Total Bilirubin (0.2-1) mg/dl AST (15-37) U/L ALT (12-78) U/L Alkaline Phosphatase (45-117) U/L Troponin I (0-0.045) ng/ml Total Protein (6.4-8.2) gm/dl Albumin (3.4-5.0) gm/dl Globulin (2.5-4.0) gm/dl Albumin/Globulin Ratio (0.9-2) Procalcitonin (0-0.5) ng/ml Urine Color Urine Appearance (Clear) Urine pH (4.5-7.5) Ur Specific Brewer (1.000-1.030) Urine Protein (Negative) Urine Glucose (UA) (Negative) Urine Ketones (Negative) Urine Blood (Negative) Urine Nitrite (Negative) Urine Bilirubin (Negative) Urine Urobilinogen (Negative) Ur Leukocyte Esterase (Negative) Urine WBC (Auto) (0-5) /hpf Urine RBC (Auto) (0-4) /hpf U Hyaline Cast (Auto) (0-5) /lpf U Epithel Cells (Auto) (0-5) /lpf Urine Bacteria (Auto) (Negative) Nasal Screen MRSA (PCR) (Negative) EBV Capsid Ag IgG Ab Pending EBV Capsid Ag IgM Ab Pending EBV EA Restrict+Diffuse Pending EBV Nuclear Antigen Ab Pending Hepatitis C Ab Screen Monoscreen (Negative) HIV 1&2 Ab/P24 Ag 4thGn (Neg) Influenza Type A Ag (Neg) Influenza Type B Ag (Neg) Urine Legionella Ag Mycoplasma pneumon IgG Pending Mycoplasma pneumon IgM Pending 07/18/19 07/18/19 07/18/19 Range/Units 16:43 16:20 16:20 WBC (4.8-10.8) K/uL RBC (4.2-5.4) M/uL Hgb (12.0-16.0) g/dL Hct (37-47) % MCV (80-100) fL MCH (25-34) pg MCHC (32-36) g/dL RDW Std Deviation (36.4-46.3) fL RDW Coeff of Abida (11.5-14.5) % Plt Count (130-400) K/uL MPV (7.4-10.4) fL Immature Gran % (Auto) % Neut % (Auto) % Lymph % (Auto) % Lucas % (Auto) % Eos % (Auto) % Baso % (Auto) % Immature Gran # (Auto) (0.00-0.02) K/uL Neut # (Auto) (1.4-6.5) K/uL Lymph # (Auto) (1.2-3.4) K/uL Lucas # (Auto) (0.11-0.59) K/uL Eos # (Auto) (0-0.5) K/uL Baso # (Auto) (0-0.2) K/uL Absolute Nucleated RBC Nucleated RBC % (auto) Neutrophils % (Manual) Band Neutrophils % Lymphocytes % (Manual) Prolymphocyte % Reactive Lymphs % (Man) Monocytes % (Manual) Eosinophils % (Manual) Basophils % (Manual) Metamyelocytes % (Man) Myelocytes % (Man) Promyelocytes % (Man) Blast Cells % (Manual) Plasma Cell % (Manual) Other Cells % Nucleated RBC % Neutrophils # (Manual) Band Neutrophils # Total Absolute Neuts Lymphocytes # (Manual) Prolymphocyte # Reactive Lymphs # Total Abs Lymphocytes Monocytes # (Manual) Eosinophils # (Manual) Basophils # (Manual) Metamyelocytes # (Man) Myelocytes # (Manual) Promyelocytes # (Man) Blast Cells # (Man) Plasma Cell # (Manual) Other Cells # Nucleated RBCs # (Man) Hypersegmented Neuts Hyposegmented Neuts Hypogranular Neuts Large Granular Lymphs # Lrg Granular Lymphs Hairy Cells Smudge Cells Toxic Granulation Toxic Vacuolation Dohle Bodies Desmond Rods Platelet Estimate Hypogranular Platelets Clumped Platelets Giant Platelets Platelet Satelliting RBC Morphology Polychromasia Hypochromasia Poikilocytosis Basophilic Stippling Anisocytosis Microcytosis Macrocytosis Spherocytes Pappenheimer Bodies Sickle Cells Target Cells Tear Drop Cells Ovalocytes Stomatocytes [place] Bodies Echinocytes Acanthocytes (Spur) Rouleaux RBC Agglutinates Schistocytes RBC Morph Comment Sezary Cell PT Cancelled INR Cancelled APTT Cancelled PTT Ratio Cancelled Sodium 139 (136-145) mmol/L Potassium 3.9 (3.5-5.1) mmol/L Chloride 106 (98-107) mmol/L Carbon Dioxide 25 (21-32) mmol/L Anion Gap 8.0 (3-11) BUN 13 (7-18) mg/dl Creatinine 0.73 (0.6-1.2) mg/dl Est Cr Clr Drug Dosing 91.2 ml/min Est GFR ( Amer) 103.8 Est GFR (Non-Af Amer) 89.5 BUN/Creatinine Ratio 18.1 (10-20) Glucose 90 (70-99) mg/dl Lactate (0.4-2.0) mmol/L Calcium 8.7 (8.5-10.1) mg/dl Total Bilirubin 0.7 (0.2-1) mg/dl AST 49 H (15-37) U/L ALT 46 (12-78) U/L Alkaline Phosphatase 100 (45-117) U/L Troponin I < 0.015 (0-0.045) ng/ml Total Protein 7.0 (6.4-8.2) gm/dl Albumin 3.4 (3.4-5.0) gm/dl Globulin 3.6 (2.5-4.0) gm/dl Albumin/Globulin Ratio 0.9 (0.9-2) Procalcitonin (0-0.5) ng/ml Urine Color Urine Appearance (Clear) Urine pH (4.5-7.5) Ur Specific [place] (1.000-1.030) Urine Protein (Negative) Urine Glucose (UA) (Negative) Urine Ketones (Negative) Urine Blood (Negative) Urine Nitrite (Negative) Urine Bilirubin (Negative) Urine Urobilinogen (Negative) Ur Leukocyte Esterase (Negative) Urine WBC (Auto) (0-5) /hpf Urine RBC (Auto) (0-4) /hpf U Hyaline Cast (Auto) (0-5) /lpf U Epithel Cells (Auto) (0-5) /lpf Urine Bacteria (Auto) (Negative) Nasal Screen MRSA (PCR) (Negative) EBV Capsid Ag IgG Ab EBV Capsid Ag IgM Ab EBV EA Restrict+Diffuse EBV Nuclear Antigen Ab Hepatitis C Ab Screen Monoscreen Negative (Negative) HIV 1&2 Ab/P24 Ag 4thGn (Neg) Influenza Type A Ag (Neg) Influenza Type B Ag (Neg) Urine Legionella Ag Mycoplasma pneumon IgG Mycoplasma pneumon IgM 07/18/19 Range/Units 16:20 WBC 15.40 H (4.8-10.8) K/uL RBC 4.44 (4.2-5.4) M/uL Hgb 13.5 (12.0-16.0) g/dL Hct 39.6 (37-47) % MCV 89.2 (80-100) fL MCH 30.4 (25-34) pg MCHC 34.1 (32-36) g/dL RDW Std Deviation 51.6 H (36.4-46.3) fL RDW Coeff of Abida 15.8 H (11.5-14.5) % Plt Count 248 (130-400) K/uL MPV 10.6 H (7.4-10.4) fL Immature Gran % (Auto) 0.4 % Neut % (Auto) 81.7 % Lymph % (Auto) 12.1 % Lucas % (Auto) 5.3 % Eos % (Auto) 0.3 % Baso % (Auto) 0.2 % Immature Gran # (Auto) 0.06 H (0.00-0.02) K/uL Neut # (Auto) 12.59 H (1.4-6.5) K/uL Lymph # (Auto) 1.86 (1.2-3.4) K/uL Lucas # (Auto) 0.82 H (0.11-0.59) K/uL Eos # (Auto) 0.04 (0-0.5) K/uL Baso # (Auto) 0.03 (0-0.2) K/uL Absolute Nucleated RBC Nucleated RBC % (auto) Neutrophils % (Manual) Band Neutrophils % Lymphocytes % (Manual) Prolymphocyte % Reactive Lymphs % (Man) Monocytes % (Manual) Eosinophils % (Manual) Basophils % (Manual) Metamyelocytes % (Man) Myelocytes % (Man) Promyelocytes % (Man) Blast Cells % (Manual) Plasma Cell % (Manual) Other Cells % Nucleated RBC % Neutrophils # (Manual) Band Neutrophils # Total Absolute Neuts Lymphocytes # (Manual) Prolymphocyte # Reactive Lymphs # Total Abs Lymphocytes Monocytes # (Manual) Eosinophils # (Manual) Basophils # (Manual) Metamyelocytes # (Man) Myelocytes # (Manual) Promyelocytes # (Man) Blast Cells # (Man) Plasma Cell # (Manual) Other Cells # Nucleated RBCs # (Man) Hypersegmented Neuts Hyposegmented Neuts Hypogranular Neuts Large Granular Lymphs # Lrg Granular Lymphs Hairy Cells Smudge Cells Toxic Granulation Toxic Vacuolation Dohle Bodies Desmond Rods Platelet Estimate Hypogranular Platelets Clumped Platelets Giant Platelets Platelet Satelliting RBC Morphology Polychromasia Hypochromasia Poikilocytosis Basophilic Stippling Anisocytosis Microcytosis Macrocytosis Spherocytes Pappenheimer Bodies Sickle Cells Target Cells Tear Drop Cells Ovalocytes Stomatocytes [place] Bodies Echinocytes Acanthocytes (Spur) Rouleaux RBC Agglutinates Schistocytes RBC Morph Comment Sezary Cell PT INR APTT PTT Ratio Sodium (136-145) mmol/L Potassium (3.5-5.1) mmol/L Chloride (98-107) mmol/L Carbon Dioxide (21-32) mmol/L Anion Gap (3-11) BUN (7-18) mg/dl Creatinine (0.6-1.2) mg/dl Est Cr Clr Drug Dosing ml/min Est GFR ( Amer) Est GFR (Non-Af Amer) BUN/Creatinine Ratio (10-20) Glucose (70-99) mg/dl Lactate (0.4-2.0) mmol/L Calcium (8.5-10.1) mg/dl Total Bilirubin (0.2-1) mg/dl AST (15-37) U/L ALT (12-78) U/L Alkaline Phosphatase (45-117) U/L Troponin I (0-0.045) ng/ml Total Protein (6.4-8.2) gm/dl Albumin (3.4-5.0) gm/dl Globulin (2.5-4.0) gm/dl Albumin/Globulin Ratio (0.9-2) Procalcitonin (0-0.5) ng/ml Urine Color Urine Appearance (Clear) Urine pH (4.5-7.5) Ur Specific Brewer (1.000-1.030) Urine Protein (Negative) Urine Glucose (UA) (Negative) Urine Ketones (Negative) Urine Blood (Negative) Urine Nitrite (Negative) Urine Bilirubin (Negative) Urine Urobilinogen (Negative) Ur Leukocyte Esterase (Negative) Urine WBC (Auto) (0-5) /hpf Urine RBC (Auto) (0-4) /hpf U Hyaline Cast (Auto) (0-5) /lpf U Epithel Cells (Auto) (0-5) /lpf Urine Bacteria (Auto) (Negative) Nasal Screen MRSA (PCR) (Negative) EBV Capsid Ag IgG Ab EBV Capsid Ag IgM Ab EBV EA Restrict+Diffuse EBV Nuclear Antigen Ab Hepatitis C Ab Screen Monoscreen (Negative) HIV 1&2 Ab/P24 Ag 4thGn (Neg) Influenza Type A Ag (Neg) Influenza Type B Ag (Neg) Urine Legionella Ag Mycoplasma pneumon IgG Mycoplasma pneumon IgM PG Care Time/CCT Total # of Minutes Spent Total Time Spent with Patient: Total time spent is greater than 50% in coordination of care (as documented) at patient's floor/unit and/or counseling patient: (1) Migraines, neuralgic Headache chronicity pattern: episodic headache Intractability: not intracta ble Qualified Code(s): G44.019 - Episodic cluster headache, not intractable
--- NOTE | 2019-07-19 15:28 | Pharmacy Report ---
Pharmacy Abx Initial Consult - Date of Service July 19, 2019 - Pharmacy Dosing Scope Date of Consult: 07/18/19 Consultation requested by: Dr. Hoskins Pharmacy is consulted to initiate vancomycin and Zosyn IV dosing therapy, order appropriate labs and adjust drug dose/frequency. - Subjective The patient is a 59 year old F admitted on 07/18/19 20:57. - Objective Height: 5 ft 8 in Weight: 81.9 kg Vital Signs (Past 12hrs): Vital Signs Temp Pulse Resp BP Pulse Ox 07/19/19 13:44 72 18 96 07/19/19 08:00 36.6 C 73 18 96/62 L 99 Lab Results (24hrs): Laboratory Tests (24 Hours) 07/19/19 07/19/19 07/19/19 08:53 06:38 05:40 WBC 10.32 Cancelled Neut # (Auto) 7.49 H Cancelled Creatinine 0.76 Est Cr Clr Drug Dosing 88.4 Procalcitonin 07/18/19 07/18/19 07/18/19 22:07 16:20 16:20 WBC 15.40 H Neut # (Auto) 12.59 H Creatinine 0.73 Est Cr Clr Drug Dosing 91.2 Procalcitonin 3.00 H Micro Results: 07/18/19 05:39 Aerobic Blood Culture - Pending Blood Anaerobic Blood Culture - Pending 07/18/19 05:28 Aerobic Blood Culture - Pending Blood Anaerobic Blood Culture - Pending - Assessment & Plan Assessment 59 year old F receiving empiric vancomycin and Zosyn for treatment of pneumonia. Patient presented to [facility] ED on 07/18 with shortness of breath. Per patient, she has history of complicated pneumonia/pulmonary infarction including sepsis/lung abscess in 2013. Additionally she has taken several courses of oral antibiotics for pneumonia over the past few months (including doxycycline, azithromycin, and amoxicillin/clavulanate). Chest x-ray on 07/18 shows alveolar opacities of the right lung base suggestive of pneumonia. Pertinent labs: SCr: 0.76 mg/dL, WBC: 10.3 (down from 15.4), procalcitonin (07/18): 3.0 ng/mL Microbiology: Blood x 2 (07/18): pending Urine (07/18): pending MRSA nasal swab: negative (high negative predictive value making MRSA pneumonia unlikely) Plan Vancomycin IV * Estimated PK Parameters: Vd 0.7 L/kg, Seferino 0.077 hr-1, t1/2 9 hr * Loading dose: 2000 mg (24 mg/kg) * Maintenance dose: 1250 mg IV (15 mg/kg) every 12 hours * Goal trough level for pneumonia : 15 to 20 mcg/mL * Trough level ordered for 07/20/19 @0530 prior to 4th dose Piperacillin/tazobactam * 4.5 g bolus administered over 30 minutes, then 3.375 g IV extended infusion every 8 hours for CrCl greater than 20 mL/min Pharmacy will continue to follow and will adjust dose/frequency as necessary. Thank you.
[2019-07-20] MEDS: ALBUT/IPRATROP 3MG/0.5MG NEB 3 ML VIAL NEB SCH ×4 (01:05→19:52)
[2019-07-20] MEDS: PIPERACILLIN/TAZOBACTAM 3.375 GM in DEXTROSE 5% 100 ML IV SCH ×3 (01:38→18:31)
[2019-07-20] MEDS: OXYCODONE HCL IR 5 MG TAB (IMMEDIATE RELEASE) PO PRN ×3 (01:43→16:39)
[2019-07-20] MEDS ORDERED: VANCOMYCIN TROUGH ONE (05:30)
[2019-07-20 05:46] LABS: Hemoglobin 10.9 g/dL (12.0-16.0); Mean Corpuscular Hemoglobin 29.7 pg (25-34); Mean Corpuscular Volume 89.9 fL (80-100); Platelet Count 237 K/uL (130-400); RDW Coefficient of Variation 16.4 % (11.5-14.5); RDW Standard Deviation 54.1 fL (36.4-46.3); Red Blood Count 3.67 M/uL (4.2-5.4); White Blood Count 6.99 K/uL (4.8-10.8)
[2019-07-20] MEDS: VANCOMYCIN HCL 1,250 MG in SODIUM CHLORIDE 0.9% 250 ML IV SCH (05:58)
[2019-07-20 06:22] LABS: BUN Creatinine Ratio 11.3 (10-20); Calcium 8.2 mg/dl (8.5-10.1); Creatinine Clr Calc Pharmacy 87.2 ml/min; Est GFR (African American) 97.3; Est GFR (Non-African American) 83.9; Potassium 3.7 mmol/L (3.5-5.1)
[2019-07-20] MEDS: PANTOprazole 40 MG TAB PO SCH (07:47)
[2019-07-20] MEDS: BACLOFEN 20 MG TAB PO SCH ×3 (07:47→20:21)
[2019-07-20] MEDS: ARIPiprazole 15 MG TAB PO SCH (07:47)
[2019-07-20] MEDS: MULTIVITAMIN TAB PO SCH (07:47)
[2019-07-20] MEDS: PREGABALIN 100 MG CAP PO SCH ×2 (07:47→20:27)
[2019-07-20] MEDS: ASPIRIN 81 MG ECTAB PO SCH (07:47)
[2019-07-20] MEDS: VITAMIN B COMPLEX TAB PO SCH (07:47)
[2019-07-20] MEDS: ENOXAPARIN INJ 40 MG/0.4 ML SYR SQ SCH (07:48)
--- NOTE | 2019-07-20 08:28 | Pharmacy Report ---
Pharmacy Abx Dose Short Note - Date of Service July 20, 2019 - Assessment & Plan Assessment 07/20 Day # 3/7 of vancomycin and Zosyn for treatment of pneumonia. Improvement of infection noted from decreased WBC and procalcitonin. Provider would like to continue vancomycin in the setting of negative MRSA swab due to possibility of resistance. Consider stopping vancomycin if further improvement seen. SCr remains stable today. Microbiology 07/18/19 19:30 Urine,Clean Catch Urine Culture - Preliminary Pin-point growth present, reincubating. 07/18/19 05:39 Blood Aerobic Blood Culture - Preliminary 07/18/19 05:39 Blood Anaerobic Blood Culture - Preliminary No growth in Aerobic bottle after 24 hours. No growth in Anaerobic bottle after 24 hours. 07/18/19 05:28 Blood Aerobic Blood Culture - Preliminary 07/18/19 05:28 Blood Anaerobic Blood Culture - Preliminary No growth in Aerobic bottle after 24 hours. No growth in Anaerobic bottle after 24 hours. Laboratory Tests 07/20/19 07/20/19 07/20/19 05:27 05:27 05:27 WBC 6.99 Creatinine 0.77 Procalcitonin 1.29 H 07/19 59 year old F receiving empiric vancomycin and Zosyn for treatment of pneumonia. Patient presented to [facility] ED on 07/18 with shortness of breath. Per patient, she has history of complicated pneumonia/pulmonary infarction including sepsis/lung abscess in 2013. Additionally she has taken several courses of oral antibiotics for pneumonia over the past few months (including doxycycline, azithromycin, and amoxicillin/clavulanate). Chest x-ray on 07/18 shows alveolar opacities of the right lung base suggestive of pneumonia. Pertinent labs: SCr: 0.76 mg/dL, WBC: 10.3 (down from 15.4), procalcitonin (07/18): 3.0 ng/mL Microbiology: Blood x 2 (07/18): pending Urine (07/18): pending MRSA nasal swab: negative (high negative predictive value making MRSA pneumonia unlikely) Plan Vancomycin * Trough level of 16.1 mcg/mL is therapeutic * Continue dose of 1250 mg IV every 12 hours * Goal trough level for pneumonia : 15 to 20 mcg/mL * Repeat trough level will be ordered in another 2-3 days if patient to remain on vancomycin Pharmacy will continue to follow and will adjust dose/frequency as necessary. Thank you.
[2019-07-20] MEDS: MOVANTIK PO SCH (10:21)
[2019-07-20] MEDS: AMITRIPTYLINE HCL 50 MG TAB PO SCH (20:20)
--- NOTE | 2019-07-20 20:48 | Hospitalist Progress Note ---
Date of Service July 20, 2019 Assessment & Plan (1) Recurrent pneumonia: - CTA showed multifocal opacities throughout right lung, c/w multifocal PNA; also has reactive lymphadenopathy. - Monospot and Influenza negative; Legionella, EBV and Mycoplasma all pending. - Has been treated as outpatient for recurrent PNA. - Started Zosyn and Vancomycin for broad spectrum coverage as inpt due to recent outpatient abx treatment, likelihood of resistance. -Given MRSA nares negativeDC vancomycin, continue Zosyn given that she has been on multiple outpatient regimens recently, and aspiration is also of concern right now -Given the fact that she is now had per her recollection for pneumonias in about 2 months, the concern on aspiration certainly looms large. Speech evaluation appreciated, video swallow tomorrow. If this is nondiagnostic, then after she is out of the hospital and better from this pneumonia and immunology evaluation would be reasonable. If that is all negative, it is also possible that she simply had pneumonia in May, and has not yet had adequate time to heal from that before getting sick with other respiratory illnesses given how prevalent respiratory illnesses have been in the community this fall (2) Migraines, neuralgic: -Headaches seem reasonably controlled right now. Continue current management (3) Chronic, continuous use of opioids: - Continue Oxycodone 10 mg QID prn pain. - Bowel regimen ordered. -No complaints of pain today (4) Hx of pulmonary infarction: -More accurately she had a very dense pneumonia with a an area of concerning developing abscessbut as best I can discern on review of records it improved with antibiotics alone. (5) GERD (gastroesophageal reflux disease): - PPI qAM. No complaints in this regard (6) Fibromyalgia: - Continue home Baclofen 20 mg TID, Lyrica 200 mg BID, Movantik 25 mg qAM with Oxycodone 10 mg QID prn. Seems to be reasonably stable, could consider outpatient trial of OMT as at least anecdotally this is been shown to help with fibromyalgia pain (7) Depression: - Continue Vistaril 100 mg qhs for anxiety. - Presumably on Abilify for depression/psych disorder - continue as prescribed. (8) DVT prophylaxis: - Lovenox daily. Dispo: Anticipate home with further improvement of pneumonia, and after at least video swallow has been completed. Subjective Still feeling fairly lousy. Feeling generally fatigued coughing not bringing much sputum, although she feels a rattling in her neck. No fevers chills or sweats. Extensive discussions with patient and son about current diagnosis, working to get to the bottom of why she had so many pneumonias recently, and next steps. Answered all questions the best my ability and to their satisfaction. Review of Systems Review of Systems: All systems reviewed & are unremarkable except as noted in HPI & below Physical Exam Physical Exam: General she is awake and alert fatigued appearing but otherwise in no distress. HEENT normocephalic atraumatic mucous membranes moist. Cardio is regular without rubs murmurs gallops. Lungs clear to auscultation overall no clear rales rhonchi or wheezes with good effort no accessory muscle use. Abdomen is soft extremities without sinus clubbing or edema no calf tenderness. Skin shows no rashes no pallor or icterus. Results & Data Vital Signs (Past 12 Hours) Vital Signs Temp Pulse Pulse Resp BP Pulse Ox 07/20/19 19:54 85 16 95 07/20/19 15:35 98.2 F 82 18 98/60 L 93 07/20/19 12:46 90 16 92 PG Care Time/CCT Total # of Minutes Spent Total Time Spent with Patient: Total time spent is greater than 50% in coordination of care (as documented) at patient's floor/unit and/or counseling patient: (1) Migraines, neuralgic Headache chronicity pattern: episodic headache Intractability: not intractable Qualified Code(s): G44.019 - Episodic cluster headache, not intractable
[2019-07-21] MEDS: ALBUT/IPRATROP 3MG/0.5MG NEB 3 ML VIAL NEB SCH ×3 (00:49→13:11)
[2019-07-21] MEDS: PIPERACILLIN/TAZOBACTAM 3.375 GM in DEXTROSE 5% 100 ML IV SCH ×2 (01:14→10:57)
[2019-07-21] MEDS: PREGABALIN 100 MG CAP PO SCH (08:52)
[2019-07-21] MEDS: MULTIVITAMIN TAB PO SCH (08:52)
[2019-07-21] MEDS: PANTOprazole 40 MG TAB PO SCH (08:52)
[2019-07-21] MEDS: BACLOFEN 20 MG TAB PO SCH ×2 (08:52→14:06)
[2019-07-21] MEDS: VITAMIN B COMPLEX TAB PO SCH (08:53)
[2019-07-21] MEDS: ARIPiprazole 15 MG TAB PO SCH (08:53)
[2019-07-21] MEDS: ENOXAPARIN INJ 40 MG/0.4 ML SYR SQ SCH (08:53)
[2019-07-21] MEDS: ASPIRIN 81 MG ECTAB PO SCH (08:53)
[2019-07-21] MEDS: MOVANTIK PO SCH (08:54)
[2019-07-21] MEDS: OXYCODONE HCL IR 5 MG TAB (IMMEDIATE RELEASE) PO PRN (08:55)
[2019-07-21] MEDS ORDERED: TRINTELLIX 10 MG PO SCH (09:00)
[2019-07-21 13:04] LABS: EBV Nuclear Ag Antibody >600.00 U/ML
--- NOTE | 2019-07-21 14:37 | Fluoroscopy Report ---
FL video swallow CLINICAL HISTORY: 59 years-old Female presenting with assess for silent aspiration. TECHNIQUE: Video fluoroscopic evaluation of swallowing was performed in the AP and lateral projection s in conjunction with speech pathology. The patient was administered various textures, including nect ar-thick and thin liquid barium, a barium coated wafer, and barium pudding. COMPARISON: None. FINDINGS: Limited evaluation of the esophagus within normal limits apart from esophageal dysmotility with disor ganized secondary contractions in the presence of tertiary contractions. Intraesophageal reflux is ev ident. Normal oral transit, including normal tongue-soft palate seal. Normal soft palate-superior constricto r muscle seal without evidence of nasopharyngeal regurgitation. Normal oral transport/propulsion of t he food bolus. Normal hyoid elevation and epiglottic deflection. No evidence of a significant pharyng eal bolus residual. None of the administered textures resulted in laryngeal penetration within the laryngeal vestibule. N one of the administered textures resulted in aspiration of barium contrast below the level of the madhu e vocal folds. Fluoroscopy dosage (mGy): Not available. Fluoroscopy time: 2.5 minutes. Number or time of high level fluoroscopy (HLF), digital spot, or digital subtraction images: 0. IMPRESSION: 1. No aspiration identified. 2. Esophageal dysmotility with intraesophageal reflux. 3. Please see the speech pathologist report for detailed findings and recommendations. Electronically signed by: Abdi Cunningham M.D. 07/21/2019 2:35 PM
--- NOTE | 2019-07-21 20:22 | Discharge Summary ---
Date of Service July 21, 2019 Admission HPI Per Admitting Provider This is a 59-year-old female who presents to the ER after experiencing chills, shortness of breath and right-sided chest pain since 2 AM on day of admission. Her past medical history is significant for complicated pneumonia in 2013 where she says " part of my lung ", TIA, fibromyalgia, GERD, chronic pain on opioid therapy. Recent past medical history includes pneumonia in May 30 treated in the urgent care setting with 3 antibiotics (patient does not recall names), prednisone and inhaler. She says a chest x-ray was positive for right- sided pneumonia. Her symptoms resolved but then a month later recurred with shortness of breath and chills. She went back to urgent care and received 1 antibiotic doxycycline, chest x-ray again showed right-sided pneumonia per the patient. She says she felt better and was in her usual state of health until 2 AM this morning when she woke up with shortness of breath, severe chills and a discomfort on the right anterior lateral chest. She says this feels just like the pneumonia she has had in the past. Of note patient denies exertional chest pain, headache or blurred vision, abdominal pain, diarrhea or constipation, focal weakness or syncope. She denies recent exotic travel, no history of blood transfusions, is on no immunosuppression. Denies choking while eating or any anton history of aspiration. Is relatively up-to-date on all immunizations, however states she had a adverse local reaction for several days to the Prevnar shot in 2011. Echocardiogram in 2013 (TIA ) showed EF 65 to 70%. Social history: Former smoker [id number] history, quit 25 years ago. Denies excessive alcohol use or vaping. Lives with her . Past medical history: TIA, migraines, fibromyalgia, GERD, chronic pain on opioid therapy Past surgical history: Laparoscopic appendectomy, urogynecologic surgical mesh ED course: Vitals reveal normotensive, not tachycardic, not tachypneic, not febrile or hypoxic. CBC showed showed leukocytosis 15,000, no anemia or other abnormalities. CHEM profile unremarkable, negative troponin. Urinalysis unremarkable with the exception of 2+ leukocyte esterase. EBV pending. Reagan screen and influenza a and B both negative. Chest x-ray positive for right- sided infiltrates. CT of the chest shows no pulmonary embolus, patchy groundglass opacities in the right middle and lower lungs. Blood culture, urine cultures pending. EKG without any abnormalities. Administered Vanco and Zosyn. As well as Imitrex for presumed migraine headache. And 1 L bolus and DuoNeb. Principal Diagnosis Recurrent pneumonia Discharge Exam General she is awake and alert pleasant no distress. HEENT normocephalic atraumatic mucous membranes moist. Breathing unlabored no accessory muscle use good effort. Skin shows no rashes no pallor or icterus. Mental status shows good recent and remote recall normal mood and affect good judgment and insight. Discharge Data Allergies Allergy/AdvReac Type Severity Reaction Status Date / Time cephalexin Allergy Severe NEURO Verified 07/18/19 18:46 CHANGES orange Allergy Unknown Swelling Verified 07/18/19 18:46 of the Eye Sulfa (Sulfonamide Allergy Unknown Swelling Verified 07/18/19 18:46 Antibiotics) of Lip/Tongue/Throat Consultations 07/18/19 18:23 ED Decision to Admit Stat Ordered Studies 07/18/19 15:37 CT angio chest PE protocol Stat 07/21/19 12:45 FL video swallow Routine Hospital Course (1) Recurrent pneumonia: - CTA showed multifocal opacities throughout right lung, c/w multifocal PNA; also has reactive lymphadenopathy. - Monospot and Influenza negative; Legionella, EBV and Mycoplasma all pending. - Has been treated as outpatient for recurrent PNA. - Started Zosyn and Vancomycin for broad spectrum coverage as inpt due to recent outpatient abx treatment, likelihood of resistance. - Given MRSA nares negativeDC'd vancomycin, was on Zosyn for another 24 hours before appearing stable enough to discharge on Augmentin. -Since this is her reportedly fourth pneumonia in about 2 months, we will treat for 14 days total with antibiotics. -Given her having had some any recurrent pneumonias, speech/swallow eval was undertaken, and she did not show any aspiration risks. We have asked to get her set up with pulmonary as an outpatient to reevaluate for any anatomic issues that could lead to her having recurrent pneumonias, especially since they seem to be mostly on the right, or if there is any potential for an immune deficiency that would lead to recurrent pneumonias as well. Otherwise it may simply be a question of the first pneumonia having been an incidental occurrence that knocked down her "reserve" and before body was able to truly rebound she got hit with the follow-up illnesses because the local community has had a rather significant burden of respiratory illness late summer and early fall this year. (2) Migraines, neuralgic: Stablecontinue home meds (3) Chronic, continuous use of opioids: Home meds unchanged (4) Hx of pulmonary infarction: -More accurately she had a very dense pneumonia with a an area of concerning developing abscessbut as best I can discern on review of records it improved with antibiotics alone. (5) GERD (gastroesophageal reflux disease): Home meds unchanged (6) Fibromyalgia: - Continue home Baclofen 20 mg TID, Lyrica 200 mg BID, Movantik 25 mg qAM with Oxycodone 10 mg QID prn. Seems to be reasonably stable, could consider outpatient trial of OMT as at least anecdotally this is been shown to help with fibromyalgia pain (7) Depression: - Continue Vistaril 100 mg qhs for anxiety. - Presumably on Abilify for depression/psych disorder - continue as prescribed. (8) DVT prophylaxis: - Lovenox utilized during her stay Dispo: stable for home w PCP and pulmonary f/u Total Time Total Time Spent Total Time Spent (In Minutes): Greater than 30 Discharge Plan Discharge Items Patient Disposition: Home - Self-Care Reason For Visit: RECURRENT PNEUMONIA Discharge Diagnosis: pneumonia Condition on Discharge: Good Activity: Resume your previous activity Non-emergency contact: Primary Care Provider and Hand I Blocker Call non-emergency contact if: you have any medication questions and your symptoms worsen Follow-up/Referrals: Miguelangel Sellers MD [Primary Care Provider] - 07/24/19 11:00 am (Please, follow up at Dr. Sellers's office with his associate, Carolyn Alberto PA-C, on SaturdayJuly 24 at 11:00 am. *If you need to change this appointment, call the office at [phone].) Kulwinder Forte MD [Physician] - 08/11/19 9:00 am (Please, follow up at [facility]'s Pulmonology Office with Dr. Kulwinder Forte on SaturdayAugust 11 at 9:00 am. *The office is located in [address] of [facility]. This is the big building located next to this [facility]. If you have any questions, call the office at [phone].) Diet: Regular Addtl Attending Provider Instructions: pneumonia -fortunately you're getting better quite quickly -we'll finish out treatment with an antibiotic called augmentin (amoxicillin/clavulanate) -- it's not identical to the zosyn you were on in the hospital, but it is quite similar -while this particular pneumonia got better fairly quickly, since you've had pneumonia repeatedly in the last few months, we'll treat for a full 14 days (11.5 more days after you're out of the hospital) -- take the augmentin twice a day until it runs out, with your next dose being before bedtime tonight -given how taxing pneumonias can be on people, while the cough may go away over the next few weeks and the breathing will probably get back to normal fairly quickly, it would not at all be surprising if you have fairly significant fatigue that might take until Thanksgiving to get better. As long as you're seeing measurable improvements over time (maybe look in 3-4 day intervals, rather than day-to-day, since improvement can come slowly) then it's OK. if you feel like you're getting weaker, or there's been a week with zero progress, then we'd definitely want you to get checked out. -as far as why you've gotten so many pneumonias recently, fortunately you're not showing any difficulty swallowing or esophagus problems that would create re current pneumonias due to food/stomach acid getting into your lungs. -as best i can tell, there doesn't seem to be any significant scarring from your severe pneumonia a few years ago (although Dr Forte will also be able to evaluate for this better than i can) -to rule out any other pulmonary or immune-system related causes that could make you more prone to pneumonias, we've got you set up with Dr Forte - pulmonary - for an outpatient follow up. -it is also quite possible that you've just had this bad run because of "unlucky timing" -- a single pneumonia (like the first one that you got in may) is a common enough illness that it really requires no underlying "why did this happen?" kind of explanation -- they're still one of the most common bacterial infections we'll see. But, once you've been "knocked down" by the first pneumonia, an illness that is that taxing can sometimes take several months for your body/immune system to fully rebound. Because of when you got the first pneumonia, combined with the respiratory illnesses that seem to have come back to town when our students came back to campus (it happens a little most years, but this year really seems to have been exceptionally bad), it's possible that before your body/immune system could rebound from the first pneumonia, you got the second, and then because you were knocked down further you got the third, and so on... -if that is the case, we'll want to have you "in a bubble" until around 's day (or about 4 months from now) to allow your body/immune system a chance to heal. 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 keep up with eating healthy and regular exercise. when you visit your grandkids, have them hand sanitize as well, and if they seem like they're sick, I'd avoid hugs and snuggles (as hard as that might be) (and really only for this winter till you've gotten a chance to get back on your feet) Pending Studies at Discharge: No Stand-Alone Forms: [facility] Medications and DC Order Prescriptions: New amoxicillin-pot clavulanate [Augmentin] 875-125 mg tablet 1 tab PO BID Qty: 23 RF: 0 Continued amitriptyline 150 mg Tablet 150 mg PO HS RF: 0 aripiprazole [Abilify] 15 mg Tablet 15 mg PO QAM RF: 0 pregabalin [Lyrica] 200 mg Capsule 200 mg PO AMPM RF: 0 baclofen 20 mg Tablet 20 mg PO TID RF: 0 oxycodone 10 mg Tablet 10 mg PO QID PRN (Reason: Pain) RF: 0 Nexium Packet [address] For Susp In Packet 20 mg PO QAM RF: 0 aspirin [Aspir-81] 81 mg Tablet,Delayed Release (Dr/Ec) 81 mg PO QAM RF: 0 vitamin B complex Tablet 1 tab PO QAM RF: 0 multivitamin [Multiple Vitamins] Tablet 1 tab PO QAM RF: 0 hydroxyzine pamoate [Vistaril] 50 mg capsule 100 mg PO HS RF: 0 Trintellix 10 mg tablet 10 mg PO QAM RF: 0 Movantik 25 mg tablet 25 mg PO QAM RF: 0 Discharge Orders: Discharge Order (Routine); Ordered 07/21/19 Ordered By: Shen Encarnacion Admission Data Admit Date/Time: 07/18/19 20:57 Attending Provider: Shen Encarnacion Admit Provider: Jessica Hoskins Primary Care Provider: Miguelangel Sellers Other Providers: Evelyn Murry Other Interventions: Discharge Summary Assessment (RN) Last Done: 07/21/19 16:04 DC Date/Time DO NOT enter until pt leaves facility: 07/21/19 17:40
[2019-07-23 20:25] LABS: Mycoplasma pneumoniae Ab, IgG 2.82 (<=0.90)
== END 2019-07-21 17:40 | disposition home or self-care (01) | DRG 195 ==
LOC: ED 15:07 → SUATTDRO 20:57 → 4W 20:57

== ENCOUNTER 2019-12-12 21:12 | Observation (INO) ==
[2019-12-12] MEDS ORDERED: ACETAMINOPHEN 500 MG TAB PO STA (21:28)
[2019-12-12] MEDS ORDERED: cefTRIAXone SODIUM 2,000 MG/70 ML BAG IV STA (21:28)
[2019-12-12] MEDS ORDERED: SODIUM CHLORIDE 0.9% 1000ML 1,000 ML IV SCH (21:30)
[2019-12-12] MEDS ORDERED: KETOROLAC TROMETHAMINE 15 MG/ML VIAL IV STA (21:34)
--- NOTE | 2019-12-12 21:48 | XRay Report ---
XR chest 1V portable CLINICAL HISTORY: 59 years-old Female presenting with fever. TECHNIQUE: Portable upright AP view of the chest was obtained. COMPARISON: 08/11/2019. FINDINGS: Cardiomediastinal silhouette normal. Minimal basilar opacities. No pleural effusion or pneumothorax. Osseous structures normal. Upper abdomen normal. IMPRESSION: 1. Minimal basilar opacities likely atelectasis or scarring. No convincing evidence of acute cardiop ulmonary disease. ACT 112: Negative or not required by law. Electronically signed by: Abdi Cunningham M.D. 12/12/2019 9:47 PM
[2019-12-12 22:07] LABS: Hematocrit (blood only) 35.4 % (37-47); Hemoglobin 11.5 g/dL (12.0-16.0); Mean Corpuscular Hemoglobin 29.2 pg (25-34); Mean Corpuscular Hgb Conc 32.5 g/dL (32-36); Mean Corpuscular Volume 89.8 fL (80-100); Mean Platelet Volume 9.9 fL (7.4-10.4); Platelet Count 303 K/uL (130-400); RDW Coefficient of Variation 14.5 % (11.5-14.5); RDW Standard Deviation 48.3 fL (36.4-46.3); Red Blood Count 3.94 M/uL (4.2-5.4); White Blood Count 13.43 K/uL (4.8-10.8)
[2019-12-12] MEDS ORDERED: ACETAMINOPHEN 500 MG TAB ONE (22:14)
[2019-12-12 22:27] LABS: Appearance Urine Cloudy (Clear); Bacteria Urine Automated Negative (Negative); Bilirubin Urine Negative (Negative); Blood Urine Negative (Negative); Color Urine Yellow; Glucose Urine UA Negative (Negative); Ketones Urine Negative (Negative); Leukocyte Esterase Urine Trace (Negative); Nitrite Urine Negative (Negative); Protein Urine Negative (Negative); RBC Urine Automated 0-4 /hpf (0-4); Specific Gravity Urine 1.008 (1.000-1.030); Urobilinogen Urine Negative (Negative)
[2019-12-12 22:31] LABS: Albumin Level 3.1 gm/dl (3.4-5.0); BUN Creatinine Ratio 9.6 (10-20); Calcium 8.5 mg/dl (8.5-10.1); Creatinine Clr Calc Pharmacy 91.1 ml/min; Est GFR (African American) 98.8; Est GFR (Non-African American) 85.3; Potassium 3.2 mmol/L (3.5-5.1)
[2019-12-12 22:32] LABS: Basophils # (auto) 0.03 K/uL (0-0.2); Basophils % (auto) 0.2 %; Eosinophils # (auto) 0.02 K/uL (0-0.5); Eosinophils % (auto) 0.1 %; Immature Granulocytes # (auto) 0.06 K/uL (0.00-0.02); Immature Granulocytes % (auto) 0.4 %; Lymphocytes # (auto) 0.49 K/uL (1.2-3.4); Lymphocytes % (auto) 3.6 %; Monocytes # (auto) 0.67 K/uL (0.11-0.59); Neutrophils # (auto) 12.16 K/uL (1.4-6.5); Neutrophils % (auto) 90.7 %
[2019-12-12 22:34] LABS: Albumin Globulin Ratio 0.7 (0.9-2); Bilirubin,Total 0.4 mg/dl (0.2-1); Globulin 4.4 gm/dl (2.5-4.0); Total Protein 7.5 gm/dl (6.4-8.2)
[2019-12-12 22:40] LABS: Influenza A virus by PCR Neg for Influ A (Neg); Influenza B virus by PCR Neg for Influ B (Neg)
--- NOTE | 2019-12-12 23:00 | Emergency Department Note ---
Entered by Cristino Jean acting as a scribe for History of Present Illness General Chief complaint: Flu Like Symptoms Stated complaint: HIGH FEVER, CHILLS, SHAKING Time Seen by Provider: 12/12/19 21:19 Source: patient History of Present Illness Onset (ago): hour(s) 5 Severity: severe (104.9 degrees F) Pain Consistency: + intermittent Maximum Pain Intensity: 8 Quality: + other (fever) Associated symptoms: + other (back pain, vomiting); no cough The patient is a 59 y/o female who presents to the ED w/ CC of an intermittent fever beginning 5 hours ago. The patient states she currently has a bladder infection. She reports she started shaking uncontrollably 5 hours ago, and she had a fever of 104.9 degrees F. The patient notes she has been taking her antibiotic, Macrobid, for the past two days. She states her urinary symptoms started a week ago with painful urination. The patient reports a history of a bladder sling and notes she frequently gets UTIs because of this. The patient reports her back also hurts, and she started vomiting today. She notes she had 2- 650mg Tylenol arthritis tablets 2.5 hours ago. She denies coughing. Home Medications Home Medications Medication Instructions Recorded Confirmed Type Nexium Packet 20 mg PO QAM 08/27/18 12/12/19 History aripiprazole [Abilify] 15 mg PO QAM 08/27/18 12/12/19 History aspirin [Aspir-81] 81 mg PO QAM 08/27/18 12/12/19 History baclofen 20 mg PO TID 08/27/18 12/12/19 History multivitamin [Multiple Vitamins] 1 tab PO QAM 08/27/18 12/12/19 History oxycodone 10 mg PO QID PRN 08/27/18 12/12/19 History vitamin B complex 1 tab PO QAM 08/27/18 12/12/19 History Movantik 25 mg PO QAM 07/18/19 12/12/19 History hydroxyzine pamoate [Vistaril] 100 mg PO HS 07/18/19 12/12/19 History cannabidiol 100 mg/mL oral solution 300 mg PO BID ml 09/17/19 12/12/19 History sumatriptan succinate 100 mg tablet 100 mg PO Q2H PRN #10 tab 09/18/19 12/12/19 Rx amitriptyline 200 mg PO HS 12/12/19 12/12/19 History escitalopram oxalate 10 mg PO DAILY 12/12/19 12/12/19 History nitrofurantoin monohyd/m-cryst 100 mg PO BID 12/12/19 12/12/19 History pregabalin 200 mg PO BID 12/12/19 12/12/19 History Allergies Allergy/AdvReac Type Severity Reaction Status Date / Time cephalexin Allergy Severe NEURO Verified 12/12/19 22:30 CHANGES orange Allergy Unknown Swelling Verified 12/12/19 22:31 of the Eye Sulfa (Sulfonamide Allergy Unknown Swelling Verified 12/12/19 22:31 Antibiotics) of Lip/Tongue/Throat Past Med/Surg History Medical History Appendicitis Elevated white blood cell count (Acute) Fibromyalgia (Chronic) Hypokalemia (Acute) Lung abscess (Acute 09/10/14) Sepsis (Acute 09/10/14) Sinusitis (Acute) UTI (lower urinary tract infection) (Acute) Surgical History H/O: hysterectomy Family History Other Cancer Social History Preferred Language: Stateless Communication Ability: Effective Contact Lens Curve Grinder Required: No Beliefs That Will Affect Care: None Current Living Situation: Spouse current occupational status: unemployed and disabled Feels Safe at Home: Yes Smoking Status: Former smoker Age Started Using Tobacco: 17 ; Age Quit Using Tobacco: 29 ; packs per day: 1 ; Number of Years Since Quit: 25 ; Hx Alcohol Use: No Hx Substance Use: No Review of Systems See HPI for pertinent positives & negatives. and A total of 10 systems reviewed and were otherwise negative Physical Exam Vital Signs Vital Signs - 24 hr 12/12/19 21:13 12/12/19 22:12 12/12/19 22:21 Temperature 38.2 C H Temperature Source Oral Pulse Rate 110 H 94 H 92 H Pulse Rate [Right] Pulse Rate from SpO2 Sensor 94 H 92 H Pulse Rhythm [Right] Pulse Strength [Right] Respiratory Rate 16 23 21 Respiratory Effort / Characteristics Respiratory Depth Blood Pressure 130/79 96/79 L Blood Pressure [Right Arm] Blood Pressure Mean 96 83 Blood Pressure Mean [Right Arm] Blood Pressure Position [Right Arm] Pulse Oximetry 97 94 94 Oxygen Delivery Method Room Air Sepsis Recent Fever Within 48 Hours Yes Sepsis New/Unexplained Change in Mental Status No Sepsis Action Taken by Nursing No Action Required 12/12/19 22:30 12/12/19 23:12 Temperature 37.2 C Temperature Source Oral Pulse Rate 89 Pulse Rate [Right] 89 Pulse Rate from SpO2 Sensor 90 Pulse Rhythm [Right] Regular Pulse Strength [Right] Normal Respiratory Rate 17 16 Respiratory Effort / Characteristics Non-Labored Spontaneous Respiratory Depth Normal Blood Pressure 104/54 L Blood Pressure [Right Arm] 103/58 L Blood Pressure Mean 84 Blood Pressure Mean [Right Arm] 73 Blood Pressure Position [Right Arm] Lying Pulse Oximetry 94 98 Oxygen Delivery Method Room Air Sepsis Recent Fever Within 48 Hours Sepsis New/Unexplained Change in Mental Status Sepsis Action Taken by Nursing Vital signs reviewed. General: Somewhat ill-appearing 59 y/o female, in no significant distress. HEENT: No scleral icterus, PERRLA, neck supple. Atraumatic. Cardiovascular: Regular rate and rhythm, no extra sounds. Pulmonary: Clear to auscultation bilaterally, normal work of breathing. Abdomen: Soft, nontender, nondistended, positive bowel sounds. Musculoskeletal: Atraumatic, no peripheral edema. Positive bilateral CVA tenderness. Neurologic: Patient awake alert and oriented x 3 Skin: Warm, diaphoretic, no rash Course Course 2126: Past medical records reviewed. The patient was evaluated in room B07. A complete history and physical examination was performed. 2306: Upon reevaluation, the patient is resting comfortably. I discussed laboratory and radiographic results with her. She verbalized agreement of the treatment plan. The patient will be evaluated for further management and care. 2311: I reviewed the patient's case with Dr. Chairez, [facility] Hospitalist. She will evaluate the patient for further management. Administered Medications Discontinued Medications Acetaminophen (Tylenol) 1,000 mg PO ONE STA Stop: 12/12/19 21:29 Last Admin: 12/12/19 22:17 Dose: Not Given Documented by: [id number] Acetaminophen (Tylenol) Confirm Administered Dose 1,000 mg .ROUTE .STK-MED ONE Stop: 12/12/19 22:15 Last Admin: 12/12/19 22:17 Dose: Not Given Documented by: [id number] Sodium Chloride (Nss 1000ml) 1,000 mls @ 999 mls/hr IV .Q1H1M FÉLIX Stop: 12/12/19 22:30 Last Infusion: 12/12/19 23:13 Dose: 0 mls/hr Documented by: [id number] Admin: 12/12/19 22:12 Dose: 999 mls/hr Documented by: [id number] Ceftriaxone Sodium (Rocephin) 2,000 mg in 70 mls @ 140 mls/hr IV NOW STA Stop: 12/12/19 21:57 Last Infusion: 12/12/19 22:45 Dose: 0 mls/hr Documented by: [id number] Admin: 12/12/19 22:13 Dose: 140 mls/hr Documented by: [id number] Ketorolac Tromethamine (Toradol) 15 mg IV NOW STA Stop: 12/12/19 21:35 Last Admin: 12/12/19 22:12 Dose: 15 mg Documented by: [id number] Medical Decision Making Differential Diagnosis Differential diagnosis: Etiologies such as viral syndrome, otitis, pharyngitis, pneumonia, influenza, meningitis, urinary tract infection, sepsis, bacteremia, as well as others were entertained. Medical Records Attestation: I reviewed the patient's medical records. Home Medications Current Medication List: was personally reviewed by me Laboratory Data Attestation: I reviewed the patient's lab results. Result diagrams: 12/12/19 21:55 12/12/19 21:55 Lab Results 12/12/19 12/12/19 12/12/19 Range/Units 21:55 21:55 21:55 WBC 13.43 H (4.8-10.8) K/uL RBC 3.94 L (4.2-5.4) M/uL Hgb 11.5 L (12.0-16.0) g/dL Hct 35.4 L (37-47) % MCV 89.8 (80-100) fL MCH 29.2 (25-34) pg MCHC 32.5 (32-36) g/dL RDW Std Deviation 48.3 H (36.4-46.3) fL RDW Coeff of Abida 14.5 (11.5-14.5) % Plt Count 303 (130-400) K/uL MPV 9.9 (7.4-10.4) fL Immature Gran % (Auto) 0.4 % Neut % (Auto) 90.7 % Lymph % (Auto) 3.6 % Crawford % (Auto) 5.0 % Eos % (Auto) 0.1 % Baso % (Auto) 0.2 % Immature Gran # (Auto) 0.06 H (0.00-0.02) K/uL Neut # (Auto) 12.16 H (1.4-6.5) K/uL Lymph # (Auto) 0.49 L (1.2-3.4) K/uL Crawford # (Auto) 0.67 H (0.11-0.59) K/uL Eos # (Auto) 0.02 (0-0.5) K/uL Baso # (Auto) 0.03 (0-0.2) K/uL Sodium 138 (136-145) mmol/L Potassium 3.2 L (3.5-5.1) mmol/L Chloride 104 (98-107) mmol/L Carbon Dioxide 28 (21-32) mmol/L Anion Gap 6.0 (3-11) BUN 7 (7-18) mg/dl Creatinine 0.76 (0.6-1.2) mg/dl Est Cr Clr Drug Dosing 91.1 ml/min Est GFR ( Amer) 98.8 Est GFR (Non-Af Amer) 85.3 BUN/Creatinine Ratio 9.6 L (10-20) Glucose 116 H (70-99) mg/dl Lactate 1.6 (0.4-2.0) mmol/L Calcium 8.5 (8.5-10.1) mg/dl Total Bilirubin 0.4 (0.2-1) mg/dl AST 67 H (15-37) U/L ALT 59 (12-78) U/L Alkaline Phosphatase 215 H (45-117) U/L Total Protein 7.5 (6.4-8.2) gm/dl Albumin 3.1 L (3.4-5.0) gm/dl Globulin 4.4 H (2.5-4.0) gm/dl Albumin/Globulin Ratio 0.7 L (0.9-2) Urine Color Urine Appearance (Clear) Urine pH (4.5-7.5) Ur Specific [place] (1.000-1.030) Urine Protein (Negative) Urine Glucose (UA) (Negative) Urine Ketones (Negative) Urine Blood (Negative) Urine Nitrite (Negative) Urine Bilirubin (Negative) Urine Urobilinogen (Negative) Ur Leukocyte Esterase (Negative) Urine WBC (Auto) (0-5) /hpf Urine RBC (Auto) (0-4) /hpf U Hyaline Cast (Auto) (0-5) /lpf U Epithel Cells (Auto) (0-5) /lpf Urine Bacteria (Auto) (Negative) Influenza Type A (PCR) (Neg) Influenza Type B (PCR) (Neg) 12/12/19 12/12/19 Range/Units 22:17 Unknown WBC (4.8-10.8) K/uL RBC (4.2-5.4) M/uL Hgb (12.0-16.0) g/dL Hct (37-47) % MCV (80-100) fL MCH (25-34) pg MCHC (32-36) g/dL RDW Std Deviation (36.4-46.3) fL RDW Coeff of Abida (11.5-14.5) % Plt Count (130-400) K/uL MPV (7.4-10.4) fL Immature Gran % (Auto) % Neut % (Auto) % Lymph % (Auto) % Crawford % (Auto) % Eos % (Auto) % Baso % (Auto) % Immature Gran # (Auto) (0.00-0.02) K/uL Neut # (Auto) (1.4-6.5) K/uL Lymph # (Auto) (1.2-3.4) K/uL Crawford # (Auto) (0.11-0.59) K/uL Eos # (Auto) (0-0.5) K/uL Baso # (Auto) (0-0.2) K/uL Sodium (136-145) mmol/L Potassium (3.5-5.1) mmol/L Chloride (98-107) mmol/L Carbon Dioxide (21-32) mmol/L Anion Gap (3-11) BUN (7-18) mg/dl Creatinine (0.6-1.2) mg/dl Est Cr Clr Drug Dosing ml/min Est GFR ( Amer) Est GFR (Non-Af Amer) BUN/Creatinine Ratio (10-20) Glucose (70-99) mg/dl Lactate (0.4-2.0) mmol/L Calcium (8.5-10.1) mg/dl Total Bilirubin (0.2-1) mg/dl AST (15-37) U/L ALT (12-78) U/L Alkaline Phosphatase (45-117) U/L Total Protein (6.4-8.2) gm/dl Albumin (3.4-5.0) gm/dl Globulin (2.5-4.0) gm/dl Albumin/Globulin Ratio (0.9-2) Urine Color Yellow Urine Appearance Cloudy A (Clear) Urine pH 6.0 (4.5-7.5) Ur Specific [place] 1.008 (1.000-1.030) Urine Protein Negative (Negative) Urine Glucose (UA) Negative (Negative) Urine Ketones Negative (Negative) Urine Blood Negative (Negative) Urine Nitrite Negative (Negative) Urine Bilirubin Negative (Negative) Urine Urobilinogen Negative (Negative) Ur Leukocyte Esterase Trace H (Negative) Urine WBC (Auto) 1-5 (0-5) /hpf Urine RBC (Auto) 0-4 (0-4) /hpf U Hyaline Cast (Auto) 1-5 (0-5) /lpf U Epithel Cells (Auto) 5-10 H (0-5) /lpf Urine Bacteria (Auto) Negative (Negative) Influenza Type A (PCR) Neg for Influ A (Neg) Influenza Type B (PCR) Neg for Influ B (Neg) Imaging Data Radiologist's Impression: Radiology results as stated below per my review and the radiologist's interpretation: XR chest 1V portable CLINICAL HISTORY: 59 years-old Female presenting with fever. TECHNIQUE: Portable upright AP view of the chest was obtained. COMPARISON: 08/11/2019. FINDINGS: Cardiomediastinal silhouette normal. Minimal basilar opacities. No pleural effusion or pneumothorax. Osseous structures normal. Upper abdomen normal. IMPRESSION: 1. Minimal basilar opacities likely atelectasis or scarring. No convincing e vidence of acute cardiopulmonary disease. ACT 112: Negative or not required by law. Electronically signed by: Abdi Cunningham M.D. 12/12/2019 9:47 PM US renal/blad retro comp CLINICAL HISTORY: 59 years-old Female presenting with UTI, fever, pyelo. TECHNIQUE: Real-time grayscale and limited color Doppler ultrasound imaging of the kidneys and bladder was performed. COMPARISON: CT from 12/06/2015. FINDINGS: Right kidney: Hyperechogenic medullary pyramids suggested. Right kidney measures 10.9 cm. No hydronephrosis. No convincing evidence of calculus or mass. Left kidney: Heterogeneous echogenicity of the parenchyma. Left kidney measures 10.2 cm. No hydronephrosis. No convincing evidence of calculus or mass. Bladder: Normal. Right ureteral jet not present. Other: None. IMPRESSION: 1. Subtle findings of parenchymal heterogeneity with suspected hyperechogenicity of medullary pyramids of the right kidney. This finding can suggest right papillary necrosis of which pyelonephritis can be a cause. 2. No hydronephrosis. 3. The absence of a right ureteral jet is of uncertain significance and may suggest slightly decreased right urinary excretion. ACT 112: Negative or not required by law. Electronically signed by: Abdi Cunningham M.D. 12/12/2019 10:59 PM Blood Pressure Blood Pressure Findings: Normal blood pressure Blood Pressure Disposition: did not require urgent referral MDM Narrative This patient was evaluated and appeared to be in no significant distress. IV access was obtained and laboratory work was drawn. Patient was hydrated with normal saline solution, given IV Toradol for her pain and residual fever. She had taken extended release Tylenol prior to arrival. Patient is noted to have an elevated WBC, urinalysis is possibly infectious however she has been on Macrobid. Ultrasound of the retroperitoneum was obtained and reveals changes consistent with a pyelonephritis. Given the patient's fever, elevated WBC and history of UTI with the ultrasound findings, the hospitalist, Dr. Chairez has be en consulted for admission and further management. Patient did receive 2 g of IV ceftriaxone in the emergency department. She is aware of the plan and agrees. Impression & Plan Acute pyelonephritis, Fever Discharge Plan Visit Data Chief Complaint: Flu Like Symptoms Stated Complaint: HIGH FEVER, CHILLS, SHAKING ED Provider: Nisha Guerra Discharge Problem: Acute pyelonephritis, Fever Patient Disposition: Being Evaluated by Hospitalist Forms Stand Alone Forms: Iggli Prescriptions Prescriptions: No Action cannabidiol 100 mg/mL solution 300 mg PO BID RF: 0 sumatriptan succinate 100 mg tablet 100 mg PO Q2H PRN (Reason: migraine headache) Qty: 10 RF: 6 aripiprazole [Abilify] 15 mg Tablet 15 mg PO QAM RF: 0 baclofen 20 mg Tablet 20 mg PO TID RF: 0 oxycodone 10 mg Tablet 10 mg PO QID PRN (Reason: Pain) RF: 0 Nexium Packet [address] For Susp In Packet 20 mg PO QAM RF: 0 aspirin [Aspir-81] 81 mg Tablet,Delayed Release (Dr/Ec) 81 mg PO QAM RF: 0 vitamin B complex Tablet 1 tab PO QAM RF: 0 multivitamin [Multiple Vitamins] Tablet 1 tab PO QAM RF: 0 hydroxyzine pamoate [Vistaril] 50 mg capsule 100 mg PO HS RF: 0 Movantik 25 mg tablet 25 mg PO QAM RF: 0 amitriptyline 100 mg tablet 200 mg PO HS RF: 0 nitrofurantoin monohyd/m-cryst 100 mg capsule 100 mg PO BID RF: 0 escitalopram oxalate 10 mg tablet 10 mg PO DAILY RF: 0 pregabalin 200 mg capsule 200 mg PO BID RF: 0 Referrals Referrals: Miguelangel Sellers MD [Primary Care Provider] - Discharge Problem: Fever Qualifiers: Fever type: unspecified Qualified Code(s): R50.9 - Fever, unspecified The scribe's documentation has been prepared under my direction and personally reviewed by me in its entirety. I confirm that the note above accurately reflects all work, treatment, procedures, and medical decision making performed by me.
--- NOTE | 2019-12-12 23:00 | Ultrasound Report ---
US renal/blad retro comp CLINICAL HISTORY: 59 years-old Female presenting with UTI, fever, pyelo. TECHNIQUE: Real-time grayscale and limited color Doppler ultrasound imaging of the kidneys and bladde r was performed. COMPARISON: CT from 12/06/2015. FINDINGS: Right kidney: Hyperechogenic medullary pyramids suggested. Right kidney measures 10.9 cm. No hydronep hrosis. No convincing evidence of calculus or mass. Left kidney: Heterogeneous echogenicity of the parenchyma. Left kidney measures 10.2 cm. No hydroneph rosis. No convincing evidence of calculus or mass. Bladder: Normal. Right ureteral jet not present. Other: None. IMPRESSION: 1. Subtle findings of parenchymal heterogeneity with suspected hyperechogenicity of medullary pyrami ds of the right kidney. This finding can suggest right papillary necrosis of which pyelonephritis can be a cause. 2. No hydronephrosis. 3. The absence of a right ureteral jet is of uncertain significance and may suggest slightly decreas ed right urinary excretion. ACT 112: Negative or not required by law. Electronically signed by: Abdi Cunningham M.D. 12/12/2019 10:59 PM
--- NOTE | 2019-12-12 23:56 | History & Physical Report ---
Date of Service December 12, 2019 Assessment & Plan (1) Acute pyelonephritis: Suspect acute pyelonephritis. Patient afebrile at present after receiving Toradol, HR and BP have improved after IVF. Non-toxic in appearance -Follow urine cultures -Ceftriaxone 2gm IV daily -Tylenol PRN fever -Zofran PRN nausea Present on Admission?: Yes (2) Depression with anxiety: Chronic. Stable and well controlled -Continue Abilify 15mg po q AM -Continue Escitalopram 10mg po daily Present on Admission?: Yes (3) GERD (gastroesophageal reflux disease): Chronic -Continue nexium 20mg po daily Present on Admission?: Yes (4) Chronic, continuous use of opioids: Chronic. -Continue home dose of Oxycodone 10mg po QID PRN pain -Continue Cannabidiol 300mg po BID Present on Admission?: Yes (5) Hypokalemia: K=3.2 -Administer Kdur 40mEq x 1 -Repeat BMP with AM labs Present on Admission?: Yes (6) Fibromyalgia: Chronic. Stable -Continue Amitriptyline -Continue Baclofen F/E/N - NSS at 100mL/hr x 2 liters, K repletion as above, monitor electrolytes, regular diet as tolerated Ppx - Low risk for DVT Code - Full per discussion with patient Dispo - Observation to medical floor History of Present Illness Chief Complaint: fevers/chills/rigors Primary Care Provider: Miguelangel Sellers MD Elissa Rizvi is a 59yo C female with history of fibromyalgia/depression/GERD presenting with fevers/chills/flank pain. Reports 1 week of dysuria and increased urinary frequency, also with cloudy/foul-smelling urine, low back pain more than usual. She was seen by her PCP on 12/10/19 and started on Macrobid for presumed UTI. Fever this afternoon to 104.9 associated with shaking chills/rigors. Also with nausea, dry heaving. She denies diarrhea, abdominal pain, URI symptoms. No additional complaints at this time. On arrival to the ER she was found to be febrile at 38.2, HR 110, BP 96/79. ER Course: Ceftriaxone 2gm, Toradol 15mg, NSS x 1L Allergies Allergy/AdvReac Type Severity Reaction Status Date / Time cephalexin Allergy Severe NEURO Verified 12/12/19 22:30 CHANGES orange Allergy Unknown Swelling Verified 12/12/19 22:31 of the Eye Sulfa (Sulfonamide Allergy Unknown Swelling Verified 12/12/19 22:31 Antibiotics) of Lip/Tongue/Throat Home Medications Home Medications Medication Instructions Recorded Confirmed Type Nexium Packet 20 mg PO QAM 08/27/18 12/12/19 History aripiprazole [Abilify] 15 mg PO QAM 08/27/18 12/12/19 History aspirin [Aspir-81] 81 mg PO QAM 08/27/18 12/12/19 History baclofen 20 mg PO TID 08/27/18 12/12/19 History multivitamin [Multiple Vitamins] 1 tab PO QAM 08/27/18 12/12/19 History oxycodone 10 mg PO QID PRN 08/27/18 12/12/19 History vitamin B complex 1 tab PO QAM 08/27/18 12/12/19 History Movantik 25 mg PO QAM 07/18/19 12/12/19 History hydroxyzine pamoate [Vistaril] 100 mg PO HS 07/18/19 12/12/19 History cannabidiol 100 mg/mL oral solution 300 mg PO BID ml 09/17/19 12/12/19 History sumatriptan succinate 100 mg tablet 100 mg PO Q2H PRN #10 tab 09/18/19 12/12/19 Rx amitriptyline 200 mg PO HS 12/12/19 12/12/19 History escitalopram oxalate 10 mg PO DAILY 12/12/19 12/12/19 History nitrofurantoin monohyd/m-cryst 100 mg PO BID 12/12/19 12/12/19 History pregabalin 200 mg PO BID 12/12/19 12/12/19 History Past Med/Surg History Medical History (Updated 12/12/19 @ 23:53 by Buffy Chairez DO) Appendicitis Fibromyalgia (Chronic) Hypokalemia (Acute) Lung abscess (Acute 09/10/14) Sepsis (Acute 09/10/14) Sinusitis (Acute) UTI (lower urinary tract infection) (Acute) Surgical History H/O: hysterectomy Family History Other Cancer Social History Preferred Language: Irish Communication Ability: Effective Telephone Triage Nurse Required: No Beliefs That Will Affect Care: None Current Living Situation: Spouse current occupational status: unemployed and disabled Feels Safe at Home: Yes Smoking Status: Former smoker Age Started Using Tobacco: 17 ; Age Quit Using Tobacco: 29 ; packs per day: 1 ; Number of Years Since Quit: 25 ; Hx Alcohol Use: No Hx Substance Use: No Review of Systems Review of Systems: All systems reviewed & are unremarkable except as noted in HPI & below Physical Exam Physical Exam: General: patient resting comfortably, NAD, non-toxic in appearance, AA&O x 4 Skin: warm, dry, intact, no rashes or lesions HEENT: NC/AT, PERRL, EOMI, anicteric sclera, conjunctiva without injection, external ear normal to inspection and nontender, nares patent, slightly dry mucus membranes, dentition intact, no oropharyngeal lesions, neck supple, trachea midline, no LAD, no thyromegaly, no JVD Heart: +S1/S2, regular, no m/r/g Lungs: equal air entry bilaterally, no rales/rhonchi/wheezes Abd: +BS, soft, NT/ND, no masses/organomegaly/ascites, no CVA tenderness Ext: warm, 2+ pulses in UE/LE bilaterally, no clubbing/cyanosis or edema Neuro: nonfocal, patient AA&O x 4, speech intact, no facial droop, moving all extremities on command with equal strength 5/5 Results & Data Vital Signs (Past 12 Hours) Vital Signs Temp Pulse Pulse Resp BP BP Pulse Ox 12/12/19 23:12 37.2 C 89 16 103/58 L 98 12/12/19 22:30 89 17 104/54 L 94 12/12/19 22:21 92 H 21 94 12/12/19 22:12 94 H 23 96/79 L 94 12/12/19 21:13 38.2 C H 110 H 16 130/79 97 Laboratory Results Lab Results 12/12/19 12/12/19 12/12/19 Range/Units 21:55 21:55 21:55 WBC 13.43 H (4.8-10.8) K/uL RBC 3.94 L (4.2-5.4) M/uL Hgb 11.5 L (12.0-16.0) g/dL Hct 35.4 L (37-47) % MCV 89.8 (80-100) fL MCH 29.2 (25-34) pg MCHC 32.5 (32-36) g/dL RDW Std Deviation 48.3 H (36.4-46.3) fL RDW Coeff of Abida 14.5 (11.5-14.5) % Plt Count 303 (130-400) K/uL MPV 9.9 (7.4-10.4) fL Immature Gran % (Auto) 0.4 % Neut % (Auto) 90.7 % Lymph % (Auto) 3.6 % Sumter % (Auto) 5.0 % Eos % (Auto) 0.1 % Baso % (Auto) 0.2 % Immature Gran # (Auto) 0.06 H (0.00-0.02) K/uL Neut # (Auto) 12.16 H (1.4-6.5) K/uL Lymph # (Auto) 0.49 L (1.2-3.4) K/uL Sumter # (Auto) 0.67 H (0.11-0.59) K/uL Eos # (Auto) 0.02 (0-0.5) K/uL Baso # (Auto) 0.03 (0-0.2) K/uL Sodium 138 (136-145) mmol/L Potassium 3.2 L (3.5-5.1) mmol/L Chloride 104 (98-107) mmol/L Carbon Dioxide 28 (21-32) mmol/L Anion Gap 6.0 (3-11) BUN 7 (7-18) mg/dl Creatinine 0.76 (0.6-1.2) mg/dl Est Cr Clr Drug Dosing 91.1 ml/min Est GFR ( Amer) 98.8 Est GFR (Non-Af Amer) 85.3 BUN/Creatinine Ratio 9.6 L (10-20) Glucose 116 H (70-99) mg/dl Lactate 1.6 (0.4-2.0) mmol/L Calcium 8.5 (8.5-10.1) mg/dl Total Bilirubin 0.4 (0.2-1) mg/dl AST 67 H (15-37) U/L ALT 59 (12-78) U/L Alkaline Phosphatase 215 H (45-117) U/L Total Protein 7.5 (6.4-8.2) gm/dl Albumin 3.1 L (3.4-5.0) gm/dl Globulin 4.4 H (2.5-4.0) gm/dl Albumin/Globulin Ratio 0.7 L (0.9-2) Urine Color Urine Appearance (Clear) Urine pH (4.5-7.5) Ur Specific Harbinger (1.000-1.030) Urine Protein (Negative) Urine Glucose (UA) (Negative) Urine Ketones (Negative) Urine Blood (Negative) Urine Nitrite (Negative) Urine Bilirubin (Negative) Urine Urobilinogen (Negative) Ur Leukocyte Esterase (Negative) Urine WBC (Auto) (0-5) /hpf Urine RBC (Auto) (0-4) /hpf U Hyaline Cast (Auto) (0-5) /lpf U Epithel Cells (Auto) (0-5) /lpf Urine Bacteria (Auto) (Negative) Influenza Type A (PCR) (Neg) Influenza Type B (PCR) (Neg) 12/12/19 12/12/19 Range/Units 22:17 Unknown WBC (4.8-10.8) K/uL RBC (4.2-5.4) M/uL Hgb (12.0-16.0) g/dL Hct (37-47) % MCV (80-100) fL MCH (25-34) pg MCHC (32-36) g/dL RDW Std Deviation (36.4-46.3) fL RDW Coeff of Abida (11.5-14.5) % Plt Count (130-400) K/uL MPV (7.4-10.4) fL Immature Gran % (Auto) % Neut % (Auto) % Lymph % (Auto) % Sumter % (Auto) % Eos % (Auto) % Baso % (Auto) % Immature Gran # (Auto) (0.00-0.02) K/uL Neut # (Auto) (1.4-6.5) K/uL Lymph # (Auto) (1.2-3.4) K/uL Sumter # (Auto) (0.11-0.59) K/uL Eos # (Auto) (0-0.5) K/uL Baso # (Auto) (0-0.2) K/uL Sodium (136-145) mmol/L Potassium (3.5-5.1) mmol/L Chloride (98-107) mmol/L Carbon Dioxide (21-32) mmol/L Anion Gap (3-11) BUN (7-18) mg/dl Creatinine (0.6-1.2) mg/dl Est Cr Clr Drug Dosing ml/min Est GFR ( Amer) Est GFR (Non-Af Amer) BUN/Creatinine Ratio (10-20) Glucose (70-99) mg/dl Lactate (0.4-2.0) mmol/L Calcium (8.5-10.1) mg/dl Total Bilirubin (0.2-1) mg/dl AST (15-37) U/L ALT (12-78) U/L Alkaline Phosphatase (45-117) U/L Total Protein (6.4-8.2) gm/dl Albumin (3.4-5.0) gm/dl Globulin (2.5-4.0) gm/dl Albumin/Globulin Ratio (0.9-2) Urine Color Yellow Urine Appearance Cloudy A (Clear) Urine pH 6.0 (4.5-7.5) Ur Specific Harbinger 1.008 (1.000-1.030) Urine Protein Negative (Negative) Urine Glucose (UA) Negative (Negative) Urine Ketones Negative (Negative) Urine Blood Negative (Negative) Urine Nitrite Negative (Negative) Urine Bilirubin Negative (Negative) Urine Urobilinogen Negative (Negative) Ur Leukocyte Esterase Trace H (Negative) Urine WBC (Auto) 1-5 (0-5) /hpf Urine RBC (Auto) 0-4 (0-4) /hpf U Hyaline Cast (Auto) 1-5 (0-5) /lpf U Epithel Cells (Auto) 5-10 H (0-5) /lpf Urine Bacteria (Auto) Negative (Negative) Influenza Type A (PCR) Neg for Influ A (Neg) Influenza Type B (PCR) Neg for Influ B (Neg) Diagnostic Findings XR chest 1V portable CLINICAL HISTORY: 59 years-old Female presenting with fever. TECHNIQUE: Portable upright AP view of the chest was obtained. COMPARISON: 08/11/2019. FINDINGS: Cardiomediastinal silhouette normal. Minimal basilar opacities. No pleural effusion or pneumothorax. Osseous structures normal. Upper abdomen normal. IMPRESSION: 1. Minimal basilar opacities likely atelectasis or scarring. No convincing evidence of acute cardiopulmonary disease. ACT 112: Negative or not required by law. Electronically signed by: Abdi Cunningham M.D. 12/12/2019 9:47 PM Dictated: 12/12/192145 Transcribed: 12/12/192145 US renal/blad retro comp CLINICAL HISTORY: 59 years-old Female presenting with UTI, fever, pyelo. TECHNIQUE: Real-time grayscale and limited color Doppler ultrasound imaging of the kidneys and bladder was performed. COMPARISON: CT from 12/06/2015. FINDINGS: Right kidney: Hyperechogenic medullary pyramids suggested. Right kidney measures 10.9 cm. No hydronephrosis. No convincing evidence of calculus or mass. Left kidney: Heterogeneous echogenicity of the parenchyma. Left kidney measures 10.2 cm. No hydronephrosis. No convincing evidence of calculus or mass. Bladder: Normal. Right ureteral jet not present. Other: None. IMPRESSION: 1. Subtle findings of parenchymal heterogeneity with suspected hyperechogenicity of medullary pyramids of the right kidney. This finding can suggest right papillary necrosis of which pyelonephritis can be a cause. 2. No hydronephrosis. 3. The absence of a right ureteral jet is of uncertain significance and may suggest slightly decreased right urinary excretion. ACT 112: Negative or not required by law. Electronically signed by: Abdi Cunningham M.D. 12/12/2019 10:59 PM Dictated: 12/12/19 2256 Code Status & VTE Plan Code Status FULL VTE Prophylaxis Plan VTE Prophylaxis will be ordered: Yes PG Care Time/CCT Total # of Minutes Spent Total Time Spent with Patient: Total time spent is greater than 50% in coordination of care (as documented) at patient's floor/unit and/or counseling patient: Coding Level of Care Code 21476 OBS Care - Level 3 Diagnoses Acute pyelonephritis N10 Depression with anxiety F41.8 GERD (gastroesophageal reflux disease) K21.9 Esophagitis presence: esophagitis presence not specified Chronic, continuous use of opioids F11.90 Hypokalemia E87.6 Fibromyalgia M79.7 (1) GERD (gastroesophageal reflux disease) Esophagitis presence: esophagitis presence not specified Qualified Code(s): K21.9 - Gastro-esophageal reflux disease without esophagitis
[2019-12-13] MEDS ORDERED: ONDANSETRON INJ 2 MG/ML 2 ML VIAL IV PRN (00:15)
[2019-12-13] MEDS ORDERED: POTASSIUM CHLORIDE 20 MEQ TABCR PO STA (00:15)
[2019-12-13] MEDS ORDERED: DOCUSATE SODIUM 100 MG CAP PO PRN (00:15)
[2019-12-13] MEDS ORDERED: ACETAMINOPHEN 325 MG TAB PO PRN (00:15)
[2019-12-13] MEDS: SODIUM CHLORIDE 0.9% 1000ML 1,000 ML IV SCH ×2 (00:49→11:04)
[2019-12-13] MEDS: OXYCODONE HCL IR 5 MG TAB (IMMEDIATE RELEASE) PO PRN ×3 (00:52→16:56)
[2019-12-13 06:06] LABS: Basophils # (auto) 0.04 K/uL (0-0.2); Basophils % (auto) 0.3 %; Eosinophils # (auto) 0.02 K/uL (0-0.5); Eosinophils % (auto) 0.1 %; Hematocrit (blood only) 30.1 % (37-47); Hemoglobin 9.6 g/dL (12.0-16.0); Immature Granulocytes # (auto) 0.04 K/uL (0.00-0.02); Immature Granulocytes % (auto) 0.3 %; Lymphocytes # (auto) 1.03 K/uL (1.2-3.4); Mean Corpuscular Hemoglobin 29.2 pg (25-34); Mean Corpuscular Hgb Conc 31.9 g/dL (32-36); Mean Corpuscular Volume 91.5 fL (80-100); Monocytes # (auto) 0.74 K/uL (0.11-0.59); Monocytes % (auto) 5.1 %; Neutrophils # (auto) 12.77 K/uL (1.4-6.5); Neutrophils % (auto) 87.2 %; Platelet Count 289 K/uL (130-400); RDW Coefficient of Variation 14.8 % (11.5-14.5); RDW Standard Deviation 49.8 fL (36.4-46.3); Red Blood Count 3.29 M/uL (4.2-5.4); White Blood Count 14.64 K/uL (4.8-10.8)
[2019-12-13 06:43] LABS: Alanine Aminotransferase 43 U/L (12-78); Albumin Level 2.3 gm/dl (3.4-5.0); Aspartate Aminotransferase 40 U/L (15-37); BUN Creatinine Ratio 11.3 (10-20); Bilirubin Direct < 0.1 mg/dl (0-0.2); Blood Urea Nitrogen 7 mg/dl (7-18); Calcium 7.9 mg/dl (8.5-10.1); Carbon Dioxide 27 mmol/L (21-32); Chloride 112 mmol/L (98-107); Creatinine Clr Calc Pharmacy 107.1 ml/min; Est GFR (African American) 112.4; Glucose 96 mg/dl (70-99); Potassium 3.8 mmol/L (3.5-5.1); Sodium 142 mmol/L (136-145)
[2019-12-13 06:50] LABS: Alkaline Phosphatase 158 U/L (45-117); Bilirubin,Total 0.3 mg/dl (0.2-1); Total Protein 5.9 gm/dl (6.4-8.2)
[2019-12-13] MEDS: BACLOFEN 20 MG TAB PO SCH ×3 (07:37→20:31)
[2019-12-13] MEDS: ASPIRIN 81 MG ECTAB PO SCH (07:38)
[2019-12-13] MEDS: ARIPiprazole 15 MG TAB PO SCH (07:38)
[2019-12-13] MEDS: PANTOprazole 40 MG TAB PO SCH (07:38)
[2019-12-13] MEDS: MEDICAL MARIJUANA PO SCH ×2 (07:39→20:30)
[2019-12-13] MEDS: ESCITALOPRAM OXALATE 10 MG TAB PO SCH (07:39)
[2019-12-13] MEDS: PREGABALIN 100 MG CAP PO SCH ×2 (09:02→20:31)
--- NOTE | 2019-12-13 09:26 | Hospitalist Progress Note ---
Date of Service December 13, 2019 Assessment & Plan (1) Acute pyelonephritis: Elissa is a 59-year-old female with a past medical history of fibromyalgia, depression, GERD, chronic bilateral low back pain following chiropractic adjustment many years ago on chronic opioids who presented with fever, chills, increasing flank pain, and dysuria he was admitted for treatment of UTI versus pyelonephritis. Acute complicated UTI Failed outpatient treatment with Macrobid prior to admission Febrile, with rigors, flank pain on admission UA positive for leukocyte active esterase, UC pending Treated empirically with Rocephin and Toradol with rapid improvement in symptoms Renal ultrasound: No hydronephrosis. Subtle hyper echogenicity of right kidney potentially consistent with right pyelonephritis Absence of right utero jet (question significance, decreased right urinary excretion?) Continue Rocephin, pending urinary cultures. Narrow as appropriate No blood cultures pending Tylenol 650 mg every 4 hours as needed, Zofran every 6 hours as needed. Given multiple QT prolonging meds and last EKG several months ago, repeat EKG to check for QT PE that would limit ondansetron use Depression with anxiety Continue aripiprazole 15 mg p.o. every morning Continue escitalopram 10 mg p.o. daily Hydroxyzine 100 mg p.o. nightly Fibromyalgia, chronic migraines Continue amitriptyline 200 mg nightly Depression treatment as above Continue pregabalin 200 mg p.o. twice daily Patient on cannabidiol 300 mg p.o. twice daily [employer] not on formulary GERD Continue Protonix 40 mg p.o. daily Chronic low back pain Continue prior to admission baclofen 20 mg p.o. 3 times daily scheduled Continue prior to admission oxycodone 10 mg p.o. 4 times daily as needed Pregabalin as above FEN GI: NSS 100 cc/h to complete 2 L total then encourage p.o. intake and reassess. Regular diet. DVT prophylaxis: Low risk. Ambulate. CODE STATUS: Full code Disposition: Med/surg, recommend least 24 hours of IV antibiotics and narrowing based on cultures (2) Fever: (3) Asthma: (4) Sacral radiculopathy: (5) Intervertebral disc degeneration: (6) Chronic migraine with aura: (7) Depression with anxiety: (8) Anemia: (9) DVT prophylaxis: (10) GERD (gastroesophageal reflux disease): (11) Depression: (12) Chronic, continuous use of opioids: Admission and Anticipated Discharge Date Admission Date: December 12, 2019 Supervising Physician Co-Signing Physician Notes Patient seen and examined with Dr. Elise. I agree with his exam findings, review of systems, assessment and plan. I have personally reviewed the lab work and imaging in the chart. patient feeling much better after IV fluids and Rocephin no fever, less flank pain, no chills or sweats eating well making urine Exam: WDWN female in no distress, lungs CTA bilaterally, normal respiratory effort, heart reg S1 and S2, no murmurs, no edema abdomen soft, NT, ND, + BS no CVA tenderness no focal neurological deficits - Pyelonephritis: failed to get better on Macrobid says that she was seen at an urgent care in [place], will work on getting a urine culture result from that visit thus far her urine culture from the ED is pending no fever, WBC remains a little high at 14k, but symptoms improved continue 2nd bag of saline but then no further fluids continue Rocephin can likely go home tomorrow if we can obtain urine culture results from urgent care complete a 14 day course Saadia Bowers is seen at the bedside this morning. She has just returned from the bathroom following a bowel movement. She reports she continues to have pain bilaterally in her lower back, and notes that she has chronic baseline bilateral low back pain following a nerve injury after a chiropractic adjustment. She continues to have mild burning with urination, which is greatly improved from yesterday. She is no longer having fever, chills, sweats, or rigors. She reports she feels "much better "compared to when she came in. She is not having any chest pain, chest pressure, shortness of breath, or difficulty breathing. She continues to be nauseous, would like some antinausea medicine. Bowel movement this morning was loose, but not completely liquid. No additional questions or concerns at time of bedside visit. Review of Systems Review of Systems: Constitutional: As noted in HPI Eyes: Denies vision change, eye pain ENT: Denies ear pain, sore throat, sinus pain Cardiovascular: Denies Chest pain, chest pressure, palpitations, extremity swelling Respiratory: Denies shortness of breath, cough, sputum production, difficulty breathing Gastrointestinal: As noted in HPI Genitourinary: Endorses dysuria. Improving frequency. Musculoskeletal: Denies weakness. Endorses chronic fibromyalgia and low back pain. Integumentary:Denies rash, lesions, bruising Neurological: Endorses chronic migraines, no acute change. Denies focal weakness. Physical Exam Physical Exam: General: A&Ox3. NAD. Cooperative. HEENT: Atraumatic, normocephalic. Visual acuity grossly intact. Nasal and ear external anatomy intact. Pulm: CTAB A&P. -wheezes, -rales, -rhonchi. Symmetrical chest rise. No increase work of breathing. No respiratory distress. Cardiac: RRR, -mrg. Radial pulses intact and symmetrical. Abdominal: Soft, NT, ND. Bowel sounds intact. Chronic low back pain with equivocal CVA tenderness. Extremities: Sensation is soft touch intact in distal extremities, walking with normal gait. Results & Data ([facility]) Vital Signs (Past 12 Hours) Vital Signs Temp Pulse Pulse Resp BP BP Pulse Ox 12/13/19 07:11 36.7 C 90 18 98/63 L 96 12/13/19 00:37 37.3 C 89 16 95/63 L 95 12/12/19 23:51 84 16 101/78 98 12/12/19 23:12 37.2 C 89 16 103/58 L 98 12/12/19 22:30 89 17 104/54 L 94 12/12/19 22:21 92 H 21 94 12/12/19 22:12 94 H 23 96/79 L 94 12/12/19 21:13 38.2 C H 110 H 16 130/79 97 Resident Activity Tracking Resident Involvement: Resident Care Provided Care Provided: Adult Hospital Medicine (1) Fever Fever type: unspecified Qualified Code(s): R50.9 - Fever, unspecified (2) GERD (gastroesophageal reflux disease) Esophagitis presence: esophagitis presence not specified Qualified Code(s): K21.9 - Gastro-esophageal reflux disease without esophagitis
--- NOTE | 2019-12-13 14:20 | Billing Data ---
Date of Service December 13, 2019 Coding Level of Care Code 50654 Subseq Hosp Care Lvl 2
[2019-12-13] MEDS ORDERED: AMITRIPTYLINE HCL 100 MG TAB PO SCH (21:00)
[2019-12-13] MEDS ORDERED: cefTRIAXone SODIUM 2,000 MG in DEXTROSE 5% 50 ML IV SCH (22:00)
[2019-12-14] MEDS: MEDICAL MARIJUANA PO SCH (08:03)
[2019-12-14] MEDS: ARIPiprazole 15 MG TAB PO SCH (08:26)
[2019-12-14] MEDS: ASPIRIN 81 MG ECTAB PO SCH (08:26)
[2019-12-14] MEDS: PREGABALIN 100 MG CAP PO SCH (08:26)
[2019-12-14] MEDS: ESCITALOPRAM OXALATE 10 MG TAB PO SCH (08:26)
[2019-12-14] MEDS: PANTOprazole 40 MG TAB PO SCH (08:26)
[2019-12-14] MEDS: BACLOFEN 20 MG TAB PO SCH ×2 (08:27→13:47)
[2019-12-14 08:54] VITALS: TEMP 98.2; O2SAT 96
[2019-12-14 10:15] LABS: Basophils # (auto) 0.03 K/uL (0-0.2); Basophils % (auto) 0.4 %; Eosinophils # (auto) 0.12 K/uL (0-0.5); Eosinophils % (auto) 1.7 %; Hematocrit (blood only) 32.1 % (37-47); Hemoglobin 10.4 g/dL (12.0-16.0); Immature Granulocytes # (auto) 0.02 K/uL (0.00-0.02); Immature Granulocytes % (auto) 0.3 %; Lymphocytes # (auto) 1.17 K/uL (1.2-3.4); Lymphocytes % (auto) 16.5 %; Mean Corpuscular Hemoglobin 29.8 pg (25-34); Mean Corpuscular Hgb Conc 32.4 g/dL (32-36); Mean Platelet Volume 10.1 fL (7.4-10.4); Monocytes # (auto) 0.64 K/uL (0.11-0.59); Neutrophils # (auto) 5.12 K/uL (1.4-6.5); Neutrophils % (auto) 72.1 %; Platelet Count 301 K/uL (130-400); RDW Coefficient of Variation 15.4 % (11.5-14.5); RDW Standard Deviation 51.8 fL (36.4-46.3); Red Blood Count 3.49 M/uL (4.2-5.4)
[2019-12-14 10:30] LABS: BUN Creatinine Ratio 8.6 (10-20); Calcium 8.3 mg/dl (8.5-10.1); Creatinine Clr Calc Pharmacy 107.1 ml/min; Est GFR (African American) 112.4; Potassium 3.6 mmol/L (3.5-5.1)
--- NOTE | 2019-12-14 11:14 | Discharge Summary ---
Date of Service December 14, 2019 Admission HPI Per Admitting Provider Elissa Rizvi is a 59yo C female with history of fibromyalgia/depression/GERD presenting with fevers/chills/flank pain. Reports 1 week of dysuria and increased urinary frequency, also with cloudy/foul-smelling urine, low back pain more than usual. She was seen by her PCP on 12/10/19 and started on Macrobid for presumed UTI. Fever this afternoon to 104.9 associated with shaking chills/rigors. Also with nausea, dry heaving. She denies diarrhea, abdominal pain, URI symptoms. No additional complaints at this time. On arrival to the ER she was found to be febrile at 38.2, HR 110, BP 96/79. ER Course: Ceftriaxone 2gm, Toradol 15mg, NSS x 1L Principal Diagnosis uti Discharge Exam Constitutional WD/WN, vitals as above Eyes PERRL, conjunctivae normal, anicteric sclerae ENMT external ear and nose normal, oropharynx normal Respiratory normal respiratory effort, lungs clear to auscultation Cardiovascular RRR, no murmur, no edema Gastrointestinal (Abdomen) normal bowel sounds, soft, nontender, no hepatosplenomegaly Musculoskeletal chronic LBP Skin no rashes, warm and dry Psychiatric A+Ox3, euthymic affect Discharge Data Allergies Allergy/AdvReac Type Severity Reaction Status Date / Time cephalexin Allergy Severe NEURO Verified 12/12/19 22:30 CHANGES orange Allergy Unknown Swelling Verified 12/12/19 22:31 of the Eye Sulfa (Sulfonamide Allergy Unknown Swelling Verified 12/12/19 22:31 Antibiotics) of Lip/Tongue/Throat Consultations 12/12/19 23:06 ED Decision to Admit Stat Ordered Studies 12/12/19 21:59 US renal/blad retro comp Stat Hospital Course (1) Acute pyelonephritis: Elissa is a 59-year-old female with a past medical history of fibromyalgia, depression, GERD, chronic bilateral low back pain following chiropractic adjustment many years ago on chronic opioids who presented with fever, chills, increasing flank pain, and dysuria he was admitted for treatment of UTI versus pyelonephritis. The following is the medical management during stay here: Acute complicated UTI Failed outpatient treatment with Macrobid prior to admission Febrile, with rigors, flank pain on admission. Initial elevated white count of 13, normalized at time of d/c Renal ultrasound: No hydronephrosis. Subtle hyper echogenicity of right kidney potentially consistent with right pyelonephritis Absence of right utero jet (question significance, decreased right urinary excretion?) UA positive for leukocyte active esterase, UC: No growth - Less than 1,000 colonies/mL. (note as above, pt was started on macrobid [employer]) Treated empirically with Rocephin and Toradol with rapid improvement in symptoms. Antibiotics narrowed to Keflex 500 BID for 10 days (ending 12/24/19) blood cultures not drawn this admission Depression with anxiety Continue aripiprazole 15 mg p.o. every morning, escitalopram 10 mg p.o. daily, Hydroxyzine 100 mg p.o. nightly Fibromyalgia, chronic migraines Continue amitriptyline 200 mg nightly, pregabalin 200 mg p.o. twice daily Depression treatment as above -Patient on cannabidiol 300 mg p.o. twice daily GERD Continue Protonix 40 mg p.o. daily Chronic low back pain Continue prior to admission baclofen 20 mg p.o. 3 times daily scheduled Continue prior to admission oxycodone 10 mg p.o. 4 times daily as needed Pregabalin as above DVT prophylaxis with ambulation, pt Low risk. At time of d/c, pt had no other acute concerns or complaints. Total Time Total Time Spent Total Time Spent (In Minutes): 30 Discharge Plan Discharge Items Patient Disposition: Home - Self-Care Reason For Visit: PYELONEPHRITIS Discharge Diagnosis: uti Activity: Per Instructions section Non-emergency contact: Primary Care Provider Call non-emergency contact if: you have any medication questions, your symptoms worsen and your temperature is above 101.5 Follow-up/Referrals: Miguelangel Sellers MD [Primary Care Provider] - 12/21/19 10:45 am (Your appointment is with the doctor's physician assistant banquet manager, Carolyn Alberto. If you need to change this appointment, please call [phone].) Diet: Regular Addtl Attending Provider Instructions: You were admitted with concerns of fever and flank pain and your urine showed signs of a urine infection. You were treated with IV antibiotics initially, and will switch to oral antibiotic on discharge. Please follow the below instructi ons on discharge: -You will continue antibiotic Keflex for 10 more days (ending 12/24/19). Follow dosage instructions on package. -Please follow up with your PCP within one week of discharge for normal hospital follow up. -If you notice symptoms similar to what brought you in initially, please see your PCP sooner. Pending Studies at Discharge: No Stand-Alone Forms: My [facility], Smoking Cessation Medications and DC Order Prescriptions: New cefdinir 300 mg capsule 300 mg PO BID 10 Days Qty: 20 RF: 0 Continued cannabidiol 100 mg/mL solution 300 mg PO BID RF: 0 sumatriptan succinate 100 mg tablet 100 mg PO Q2H PRN (Reason: migraine headache) Qty: 10 RF: 6 aripiprazole [Abilify] 15 mg Tablet 15 mg PO QAM RF: 0 baclofen 20 mg Tablet 20 mg PO TID RF: 0 oxycodone 10 mg Tablet 10 mg PO QID PRN (Reason: Pain) RF: 0 Nexium Packet [address] For Susp In Packet 20 mg PO QAM RF: 0 aspirin [Aspir-81] 81 mg Tablet,Delayed Release (Dr/Ec) 81 mg PO QAM RF: 0 vitamin B complex Tablet 1 tab PO QAM RF: 0 multivitamin [Multiple Vitamins] Tablet 1 tab PO QAM RF: 0 hydroxyzine pamoate [Vistaril] 50 mg capsule 100 mg PO HS RF: 0 Movantik 25 mg tablet 25 mg PO QAM RF: 0 amitriptyline 100 mg tablet 200 mg PO HS RF: 0 escitalopram oxalate 10 mg tablet 10 mg PO DAILY RF: 0 pregabalin 200 mg capsule 200 mg PO BID RF: 0 Discontinued ciprofloxacin HCl 500 mg tablet 500 mg PO BID 5 Days Qty: 10 RF: 0 Discharge Orders: Discharge Order (Routine); Ordered 12/14/19 Ordered By: Bert Gutiérrez Admission Data Admit Date/Time: 12/12/19 23:34 Attending Provider: Alea Reece Admit Provider: Buffy Chairez Primary Care Provider: Miguelangel Sellers. Other Providers: Buffy Chairez ; Trent Rizvi Other Interventions: Discharge Summary Assessment (RN) Last Done: 12/14/19 13:38 DC Date/Time DO NOT enter until pt leaves facility: 12/14/19 14:45 Supervising Physician Co-Signing Physician Notes Resident Physician Supervision Note: I independently interviewed and examined the patient and verified the degroot history and physical, reviewed labs and image studies, discussed the case with the resident Dr. Gutiérrez and agree with the findings and care plan. Resident Activity Tracking Resident Involvement: Resident Care Provided Care Provided: Adult [facility]
[2019-12-14] MEDS: OXYCODONE HCL IR 5 MG TAB (IMMEDIATE RELEASE) PO PRN (11:53)
[2019-12-14 13:39] VITALS: BP 98/63; PULSE 81
--- NOTE | 2019-12-14 14:14 | Electrocardiogram Report ---
Test Reason : Blood Pressure : / mmHG Vent. Rate : 088 BPM Atrial Rate : 088 BPM P-R Int : 184 ms QRS Dur : 102 ms QT Int : 400 ms P-R-T Axes : 069 076 068 degrees QTc Int : 484 ms Normal sinus rhythm Prolonged QT Abnormal ECG When compared with ECG of 18-JUL-2019 15:21, Incomplete right bundle branch block is no longer Present QT has lengthened Confirmed by Enrique Montesinos ([id number]) on 12/14/2019 2:14:47 PM Referred By: REFERRED SELF Confirmed By:Enrique Montesinos
== END 2019-12-14 14:45 | disposition home or self-care (01) ==
LOC: 2N 21:12 → ED 21:12 → SUATTDRO 23:34 → 2N 23:51